=== PATIENT | male | born 1950 | race Caucasian/White ===

== ENCOUNTER 2023-03-15 07:45 | Outpatient (AMB) | payer OTHER, MEDICARE, SELFPAY ==
--- NOTE | 2023-03-15 08:00 | A.OFFVIS_ITS ---
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 It started about 3-4 years ago .2 years later he started noticing tremors in right hand as well. He denies difficulty with fine motor coordination. 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 He denies any memory issues. No word finding difficulties. No sleep talking.He used to snore when he was heavy .He denies depression, anxiety. He is motivated. SPeech- softer Swallowing- normal Mild drooling Handwriting-smaller Using utensils-normal Dressing-normal Showering-normal Turning in bed- normal Gait- normal No balance issues No falls He has constipation occasionally No urinary issues- has prostrate issues,? tumour No dizziness No hallucinations No h/o head injury exposed to kerosene [facility] Medical History Arthritis Atypical chest pain Colonic polyp Renal cell carcinoma Surgical History H/O arthroscopy History of hip replacement History of nephrectomy, right Family History Father Lung neoplasm Mother No problems noted. Social History Alcohol intake: former Patient Tobacco Use Status: Never used Tobacco Use of substances other than those prescribed or required for medical reasons: No Review of Systems Const Reports no additional complaints Eyes Reports no additional complaints ENT Reports no additional complaints Neuro Reports tremor(s) Physical Exam Vital Signs: Last Vital Signs Pulse 78 03/15/23 08:07 BP 118/72 03/15/23 08:07 Pulse Ox 97 03/15/23 08:07 Oxygen Delivery Method Room Air 03/15/23 08:07 BMI result Body Mass Index 27.6 Const General: cooperative, healthy appearing, comfortable and no acute distress Nutritional Appearance: average body habitus Orientation/consciousness: patient oriented x3 HEENT Head: Yes normal to inspection Neck Other: mild antecollis and restricted range of motion Neuro Other: Moderate decreased blink and facial expression mild lower lip tremors, tongue tremors , slow tongue movements Voice- hypophonia,dysprosody left UE moderate amplitude rest tremors Fine Finger movements - mildly decreased layne l>R Alternating hand movements - decreased layne Hand movements - decreased layne Foot taps- decreased layne Mild cog wheel rigidity gait - stooped, mild slowness and decreased arm swing L>R General: patient oriented x3 Cranial nerves: Yes CN's II-XII intact bilaterally, Yes Bilaterally intact EOM present, Yes Normal facial strength present and Yes Midline tongue present Cognition (Neuro): normal cognition Motor exam (neuro): 5/5 motor strength present throughout Deep tendon reflexes (DTR's): Right triceps reflex intensity grade: 2+, Left triceps reflex intensity grade: 2+, Rt Biceps (C5, C6): 2+, Left biceps reflex intensity grade: 2+, Right brachioradialis reflex intensity grade: 2+, Left brachioradialis reflex intensity grade: 2+, Right patellar reflex intensity grade: 2+ and Left patellar reflex intensity grade: 2+ Coordination: [id number] test normal Psych Appearance: grossly normal Assessment & Plan Assessment & Plan (1) Parkinson's disease: Code(s): G20 - Parkinson's disease Plan Discussed the diagnosis in detail suggested MRI brain and CATINA scan . Patient declined for now Discussed various treatment options - he wants to try sinemet 25/100 I will trial him on sinemet 25/100 1/2 to 1tab bid PT- for Parkinsons Info on APDA given. Orders: Orders PT Evaluation and Treatment Today G20 - Parkinson's disease Medications: New carbidopa-levodopa 25-100 mg (Sinemet) 1/2 to 1 tab bid orally 2 times a day; 60 tabs 2RF Coding Level of Care Code New Pt Level 4 (51676) Diagnoses Parkinson's disease G20
[2023-03-15 08:07] VITALS: BP 118/72; PULSE 78; O2SAT 97; BMI 27.6
== END 2023-03-15 08:45 | disposition home or self-care (01) ==
PROVIDERS: Visit Provider Psychiatry & Neurology Neurology
DX: G20 Parkinson's disease (principal)
CPT/HCPCS: 99204

== ENCOUNTER → 2023-03-15 07:45 | Outpatient (BNVA) | payer OTHER, MEDICARE, SELFPAY | PROVIDERS: Visit Provider Psychiatry & Neurology Neurology ==

== ENCOUNTER 2023-05-27 09:35 | Outpatient (AMB) | payer OTHER, MEDICARE, SELFPAY ==
--- NOTE | 2023-05-27 09:36 | MHC.OFFVIS ---
Intake Vital Signs 05/27/23 09:37 Height 5 ft 8 in Weight 185 lb BMI 28.1 BP 142/90 H Blood Pressure Location Lt brachial Position Sitting Respiration 16 Pulse 71 Pulse Source Pulse Oximeter Pulse Oximetry (%) 97 Oxygen Delivery Method Room Air Intake Visit Reasons: 2m follow up tremor/Parkinson-confirmed Intake Note: Pt presents to the office for 2 month follow up for tremors. He states his tremors are the same. I'm good . [employer] Internship Required: No Allergies Penicillins Allergy (Severe, Verified 05/27/23 09:36) rash Medication List - Last Reconciled 05/27/23 by Marisabel Cheng MD acetaminophen (Tylenol) 325 mg PO QID PRN carbidopa-levodopa 25-100 mg (Sinemet) 1 tab PO TID triamcinolone acetonide 0.5% 1 appl topical DAILY HPI HPI Comments History of Present Illness Details 73y/o male comes for follow up of parkinsons disease.He is on sinemet 25/100 1/2 tab bid. He [place] not noticed any difference. It started about 3-4 years ago .2 years later he started noticing tremors in right hand as well. He denies difficulty with fine motor coordination. 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 He denies any memory issues. No word finding difficulties. No sleep talking.He used to snore when he was heavy .He denies depression, anxiety. He is motivated. SPeech- softer Swallowing- normal Mild drooling Handwriting-smaller Using utensils-normal Dressing-normal Showering-normal Turning in bed- normal Gait- normal No balance issues No falls He has constipation occasionally No urinary issues- has prostrate issues,? tumour No dizziness No hallucinations No h/o head injury exposed to kerosene [facility] Medical History (Updated 05/27/23 @ 10:13 by Marisabel Cheng MD) Parkinson's disease without dyskinesia or fluctuating manifestations Arthritis Atypical chest pain Colonic polyp Renal cell carcinoma Surgical History H/O prostate biopsy History of nephrectomy, right History of hip replacement H/O arthroscopy Family History Father Lung neoplasm Mother No problems noted. Social History Alcohol intake: former Patient Tobacco Use Status: Never used Tobacco Physical Exam Vital Signs: Last Vital Signs Pulse 71 05/27/23 09:37 Resp 16 05/27/23 09:37 BP 142/90 H 05/27/23 09:37 Pulse Ox 97 05/27/23 09:37 Oxygen Delivery Method Room Air 05/27/23 09:37 BMI result Body Mass Index 28.1 Const General: cooperative, healthy appearing, comfortable and no acute distress Nutritional Appearance: average body habitus Orientation/consciousness: patient oriented x3 HEENT Head: Yes normal to inspection Neck Other: mild antecollis and restricted range of motion Neuro Other: UPDRS - 3 Speech 0-normal 1-Slight loss of expression,diction or volume 2.Monotone,slurred but understandable,moderately impaired 3.Marked impairment,difficult to understand 4.Unintelligible Facial expression 0-normal 1-Minimal hypomimia, poker face 2-Slight but definite abnormal diminution of facial expression 3-Moderate hypomimia,lips parted some of the time 4-Masked or fixed facies withs evere loss of facialexpression, lips parted more than 1/4 inch Rest Tremors( head, Upper, lower ) 0- absent 1-Slight and infrequent 2-Mild in amplitude and persistent 3-Moderate in amplitude and present most of the time 4-Marked amplitude and present most of the time Action and Postural tremors 0-none 1-Slight with action 2-Moderate with action 3-Moderate with posture and action 4-Marked , interferes with feeding Rigidity 0-Absent 1-Slight or detectable only when activated by mirror movements 2-Mild to Moderate 3-Marked, but full ROM achieved 4-Severe, range of motion achieved with difficulty Finger Taps 0-normal 1-Mild slowing an tejal reductionin amplitude 2-Moderately impaired. Early fatiguing and occasional arrests in movement 3-Severely impaired. Frequent hesitation in initiating movements or arrests in ongoing movement. 4-can barely perform the task Hand movements 0-normal 1-mild slowing and or reduction in amplitude 2-Moderately impaired.Definite and early fatiguing, may have occasional arrests in movement. 3-Severely impaired.Frequent hesitation in initiating or arrests in movement. 4-can barely perform the task Rapid Alternating Movements of Hands 0-normal 1-Mild slowing and or reduction in amplitude 2-Moderately impaired.Definite and early fatiguing. 2-Moderately impaired. Definite and early fatiguing. May have occasional arrests in movement. 3-severely impaired.Frequent hesitation in initiating movements or arrests in ongoing movement. 4-can barely perform the task Leg agility 0-normal 1-mild slowing and reduction in amplitude 2-moderately impaired.Definite and early fatiguing , may have occasional arrets in movement. 3-severely impaired.Frequent hesitation in initiating movements or arrests in ongoing movement. 4-can barely perform the task Arising from a chair 0-Normal 1-Slow or may need more than 1 attempt 2-Pushes self up from arms of seat 3-Tends to fall back and may have to try more than one time,but can get up without difficulty 4-Unable to stand without help Postural stability 0-normal 1-retropulsion but recovers unaided 2-absence of postural response,will fail if not caught by the examiner 3-very unstable,tends to lose balance spontaneously 4-unable to stand without assistance Body bradykinesia and hypokinesia 0-none 1-minimal slowness,giving movement a deliberate character,could be normal for some persons.Possible reduced amplitude 2-Mild degree of slowness and poverty of movement or some reduced amplitude 3-moderate slowness,poverty or small amplitude of movement 4-marked slowness, poverty or small amplitude of movement. General: patient oriented x3 Cranial nerves: Yes CN's II-XII intact bilaterally, Yes Bilaterally intact EOM present, Yes Normal facial strength present and Yes Midline tongue present Cognition (Neuro): normal cognition Motor exam (neuro): 5/5 motor strength present throughout Deep tendon reflexes (DTR's): Right triceps reflex intensity grade: 2+, Left triceps reflex intensity grade: 2+, Rt Biceps (C5, C6): 2+, Left biceps reflex intensity grade: 2+, Right brachioradialis reflex intensity grade: 2+, Left brachioradialis reflex intensity grade: 2+, Right patellar reflex intensity grade: 2+ and Left patellar reflex intensity grade: 2+ Coordination: [id number] test normal Psych Appearance: grossly normal Assessment & Plan Assessment & Plan (1) Parkinson's disease without dyskinesia or fluctuating manifestations: Code(s): G20.A1 - Parkinson's disease without dyskinesia, without mention of fluctuations Plan Discussed the diagnosis in detail. He has early parkinsons disease without any fluctuations or atypical features. No evidence of orthostatic hypotension today. Increase sinemet 25/100 1 tab tid . Sinemet or carbidopa/levodopa can help with his tremors and bradykinesia. some of the side effects include constipation, dizziness, nausea, hypotension, hallucinations etc. If he misses a dose of medications his tremors and his slowness of movements will worsen. PT- for Parkinsons Info on APDA given. 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
[2023-05-27 09:37] VITALS: BP 142/90; PULSE 71; RESP 16; O2SAT 97; BMI 28.1
== END 2023-05-27 10:09 | disposition home or self-care (01) ==
PROVIDERS: Visit Provider Psychiatry & Neurology Neurology
DX: G20.A1 Parkinson's disease without dyskinesia, without mention of fluctuations (principal)
CPT/HCPCS: 99214

== ENCOUNTER → 2023-05-27 09:35 | Outpatient (BNVA) | payer OTHER, MEDICARE, SELFPAY | PROVIDERS: Visit Provider Psychiatry & Neurology Neurology ==

== ENCOUNTER 2023-06-03 07:16 | Outpatient (REF) | payer OTHER, MEDICARE, SELFPAY ==
--- NOTE | ~2023-06-03 | MR_ITS ---
EXAMINATION: MR BRAIN WITHOUT CONTRAST CLINICAL INFORMATION: 73-year-old with Parkinson's disease. Self-reported intermittent left hand tremor. COMPARISON: None available. TECHNIQUE: Multiplanar multisequence MR imaging of the brain was done without IV contrast. FINDINGS: Brain Volume: Mild generalized diffuse parenchymal volume loss within the limitations of qualitative assessment. Structural: No malformations. Brain and Meninges: DWI sequence demonstrates no restricted diffusion to suggest acute or subacute cerebral ischemia. Gradient refocused imaging demonstrates no abnormal susceptibility-weighted signal loss to suggest hemorrhage, hemosiderin staining or abnormal mineralization. A single 3 mm left posterior frontal subcortical white matter T2 hyperintensity is noted which is nonspecific. Subtle patchy zones of FLAIR/T2 hyperintensity in the parieto-occipital white matter bilaterally also noted, likely reflecting chronic ischemic microangiopathy. Remainder of the brain is normal in signal intensity. No extra-axial fluid collections, space-occupying process or mass effect is identified. Ventricles and Subarachnoid Spaces: The ventricular system and subarachnoid spaces are within normal range; there is no hydrocephalus. Orbital Structures: The visualized orbital structures are grossly unremarkable within the limitations of the study. Vascular: Signal voids are noted in the visualized major intracranial arterial vessels. There is probably slow flow within the left transverse and sigmoid sinuses. If clinically warranted, this can be further assessed with contrast-enhanced MR venography. Osseous Structures, Sinuses/Mastoids, Extracranial Soft Tissues: Unremarkable MR/MR head/brain wo con IMPRESSION: 1. No acute intracranial process. No evidence for infarction, hemorrhage, extra-axial fluid collection, space-occupying process, mass effect or hydrocephalus. 2. 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 3. Probable slow flow within the left transverse and sigmoid sinuses. If clinically warranted, this can be further assessed with contrast-enhanced MR venography.
== END 2023-06-03 07:17 | disposition home or self-care (01) ==
LOC: HO.MRI 07:16
PROVIDERS: Visit Provider Psychiatry & Neurology Neurology
DX: G20.C Parkinsonism, unspecified (principal)
CPT/HCPCS: 70551

== ENCOUNTER 2023-08-22 07:53 | Outpatient (AMB) | payer OTHER, MEDICARE, SELFPAY ==
--- NOTE | 2023-08-22 08:00 | MHC.OFFVIS ---
Intake Vital Signs 08/22/23 08:01 Height 5 ft 8 in Weight 186 lb 8 oz BMI 28.4 BP 136/78 Blood Pressure Location Lt brachial Position Sitting Respiration 16 Pulse 68 Pulse Source Palpation Intake Visit Reasons: 3 mo f/u-Tremor - Conf through CW Intake Note: Pt presents for 3 month follow up for Parkinson's. Non Destructive Testing Inspector Required: No Allergies Penicillins Allergy (Severe, Verified 08/22/23 08:01) rash HPI HPI Comments History of Present Illness Details 73y/o male comes for follow up of parkinsons disease.He is on sinemet 25/100 1 tab tid. He feels tid is too much meds for him It started about 3-4 years ago .2 years later he started noticing tremors in right hand as well. He denies difficulty with fine motor coordination. 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 He denies any memory issues. No word finding difficulties. No sleep talking.He used to snore when he was heavy .He denies depression, anxiety. He is motivated. SPeech- softer Swallowing- normal Mild drooling Handwriting-smaller Using utensils-normal Dressing-normal Showering-normal Turning in bed- normal Gait- normal No balance issues No falls He has constipation occasionally No urinary issues- has prostrate issues,? tumour No dizziness No hallucinations No h/o head injury exposed to kerosene [facility] Medical History (Updated 05/27/23 @ 10:13 by Marisabel Cheng MD) Parkinson's disease without dyskinesia or fluctuating manifestations Arthritis Atypical chest pain Colonic polyp Renal cell carcinoma Surgical History H/O prostate biopsy History of nephrectomy, right History of hip replacement H/O arthroscopy Family History Father Lung neoplasm Mother No problems noted. Social History Alcohol intake: former Patient Tobacco Use Status: Never used Tobacco Physical Exam Vital Signs: Last Vital Signs Pulse 68 08/22/23 08:01 Resp 16 08/22/23 08:01 BP 136/78 08/22/23 08:01 BMI result Body Mass Index 28.4 Const General: cooperative, healthy appearing, comfortable and no acute distress Nutritional Appearance: average body habitus Orientation/consciousness: patient oriented x3 HEENT Head: Yes normal to inspection Neck Other: mild antecollis and restricted range of motion Neuro Other: UPDRS - 3 Speech 0-normal 1-Slight loss of expression,diction or volume 2.Monotone,slurred but understandable,moderately impaired 3.Marked impairment,difficult to understand 4.Unintelligible Facial expression 0-normal 1-Minimal hypomimia, poker face 2-Slight but definite abnormal diminution of facial expression 3-Moderate hypomimia,lips parted some of the time 4-Masked or fixed facies withs evere loss of facialexpression, lips parted more than 1/4 inch Rest Tremors( head, Upper, lower ) 0- absent 1-Slight and infrequent 2-Mild in amplitude and persistent 3-Moderate in amplitude and present most of the time 4-Marked amplitude and present most of the time Action and Postural tremors 0-none 1-Slight with action 2-Moderate with action 3-Moderate with posture and action 4-Marked , interferes with feeding Rigidity 0-Absent 1-Slight or detectable only when activated by mirror movements 2-Mild to Moderate 3-Marked, but full ROM achieved 4-Severe, range of motion achieved with difficulty Finger Taps 0-normal 1-Mild slowing an tejal reductionin amplitude 2-Moderately impaired. Early fatiguing and occasional arrests in movement 3-Severely impaired. Frequent hesitation in initiating movements or arrests in ongoing movement. 4-can barely perform the task Hand movements 0-normal 1-mild slowing and or reduction in amplitude 2-Moderately impaired.Definite and early fatiguing, may have occasional arrests in movement. 3-Severely impaired.Frequent hesitation in initiating or arrests in movement. 4-can barely perform the task Rapid Alternating Movements of Hands 0-normal 1-Mild slowing and or reduction in amplitude 2-Moderately impaired.Definite and early fatiguing. 2-Moderately impaired. Definite and early fatiguing. May have occasional arrests in movement. 3-severely impaired.Frequent hesitation in initiating movements or arrests in ongoing movement. 4-can barely perform the task Leg agility 0-normal 1-mild slowing and reduction in amplitude 2-moderately impaired.Definite and early fatiguing , may have occasional arrets in movement. 3-severely impaired.Frequent hesitation in initiating movements or arrests in ongoing movement. 4-can barely perform the task Arising from a chair 0-Normal 1-Slow or may need more than 1 attempt 2-Pushes self up from arms of seat 3-Tends to fall back and may have to try more than one time,but can get up without difficulty 4-Unable to stand without help Postural stability 0-normal 1-retropulsion but recovers unaided 2-absence of postural response,will fail if not caught by the examiner 3-very unstable,tends to lose balance spontaneously 4-unable to stand without assistance Body bradykinesia and hypokinesia 0-none 1-minimal slowness,giving movement a deliberate character,could be normal for some persons.Possible reduced amplitude 2-Mild degree of slowness and poverty of movement or some reduced amplitude 3-moderate slowness,poverty or small amplitude of movement 4-marked slowness, poverty or small amplitude of movement. General: patient oriented x3 Cranial nerves: Yes CN's II-XII intact bilaterally, Yes Bilaterally intact EOM present, Yes Normal facial strength present and Yes Midline tongue present Cognition (Neuro): normal cognition Motor exam (neuro): 5/5 motor strength present throughout Coordination: [id number] test normal Psych Appearance: grossly normal Assessment & Plan Assessment & Plan (1) Parkinson's disease without dyskinesia or fluctuating manifestations: Code(s): G20.A1 - Parkinson's disease without dyskinesia, without mention of fluctuations Plan Discussed about BIG and LOUD program and importance of consistent exercise No evidence of orthostatic hypotension today. continue sinemet 25/100 1 tab tid - decrease if he has side effects. Sinemet or carbidopa/levodopa can help with his tremors and bradykinesia. some of the side effects include constipation, dizziness, nausea, hypotension, hallucinations etc. If he misses a dose of medications his tremors and his slowness of movements will worsen. PT- for Parkinsons Info on APDA given. 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
[2023-08-22 08:01] VITALS: BP 136/78; PULSE 68; RESP 16; BMI 28.4
== END 2023-08-22 08:35 | disposition home or self-care (01) ==
PROVIDERS: PCP Internal Medicine; Visit Provider Psychiatry & Neurology Neurology
DX: G20.A1 Parkinson's disease without dyskinesia, without mention of fluctuations (principal)
CPT/HCPCS: 99214

== ENCOUNTER → 2023-08-22 07:53 | Outpatient (BNVA) | payer OTHER, MEDICARE, SELFPAY | PROVIDERS: PCP Internal Medicine; Visit Provider Psychiatry & Neurology Neurology ==

== ENCOUNTER 2023-09-14 16:23 | Outpatient (REF) | payer OTHER, MEDICARE, SELFPAY ==
--- NOTE | ~2023-09-14 | MR_ITS ---
EXAMINATION: MR VENOGRAM HEAD INDICATION: Intracranial and intraspinal phlebitis and thrombophlebitis COMPARISON: MRI brain on 06/03/2023 TECHNIQUE: Multiplanar multisequence MR venogram of the brain obtained without and following the administration of 10 mL of Gadavist without complication. 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 There is corresponding loss of flow-related signal within these sinuses however complete opacification is seen on postcontrast sequences. The inferior sagittal sinus is not seen and may be absent or hypoplastic. The superior sagittal sinus, internal cerebral veins, straight sinus, cavernous sinuses, and torcula demonstrate normal flow-related signal and complete contrast opacification. The right transverse sinus, right sigmoid sinus, and right exiting internal jugular vein also demonstrate normal flow-related signal and complete contrast opacification. No filling defect. No midline shift, hydrocephalus, or brain herniation. MR/MR venography head wo/w con IMPRESSION: No evidence of cerebral venous sinus thrombosis.
[2023-09-14] MEDS: gadobutroL 10 ML VIAL IVPUSH (17:21)
== END 2023-09-14 16:24 | disposition home or self-care (01) ==
LOC: HO.MRI 16:23
PROVIDERS: PCP Internal Medicine; Visit Provider Psychiatry & Neurology Neurology
DX: G08 Intracranial and intraspinal phlebitis and thrombophlebitis (principal)
CPT/HCPCS: 70546; A9585

== ENCOUNTER 2024-02-20 07:31 | Outpatient (AMB) | payer MEDICARE, OTHER, SELFPAY ==
--- NOTE | 2024-02-20 07:33 | A.OFFVIS_ITS ---
Vital Signs 02/20/24 07:34 Height 5 ft 8 in Weight 184 lb 4 oz BMI 28.0 BP 130/78 Blood Pressure Location Rt brachial Position Sitting Respiration 16 Pulse 87 Pulse Source Pulse Oximeter Pulse Oximetry (%) 98 Oxygen Delivery Method Room Air Intake Visit Reasons: 6 mo f/u - LVM w/add Intake Note: Pt presents for a 6 month follow up for Parkinson's. 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 He feels tid is too much meds for him- he was started on steroids for his back so he decreased the dose qd.When he was taking tid he did not notice any improvement. He has not been flying. It started about 3-4 years ago .2 years later he started noticing tremors in right hand as well. He denies difficulty with fine motor coordination. 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 He denies any memory issues. No word finding difficulties. No sleep talking.He used to snore when he was heavy .He denies depression, anxiety. He is motivated. SPeech- softer Swallowing- normal Mild drooling Handwriting-smaller Using utensils-normal Dressing-normal Showering-normal Turning in bed- normal Gait- normal No balance issues No falls He has constipation occasionally No urinary issues- has prostrate issues,? tumour No dizziness No hallucinations No h/o head injury exposed to kerosene [facility] Medical History Parkinson's disease without dyskinesia or fluctuating manifestations Arthritis Atypical chest pain Colonic polyp Renal cell carcinoma Surgical History H/O prostate biopsy History of nephrectomy, right History of hip replacement H/O arthroscopy Family History Father Lung neoplasm Mother No problems noted. Social History Alcohol intake: former Patient Tobacco Use Status: Never used Tobacco Physical Exam Vital Signs: Last Vital Signs Pulse 87 02/20/24 07:34 Resp 16 02/20/24 07:34 BP 130/78 02/20/24 07:34 Pulse Ox 98 02/20/24 07:34 Oxygen Delivery Method Room Air 02/20/24 07:34 BMI result Body Mass Index 28.0 Const General: cooperative, healthy appearing, comfortable and no acute distress Nutritional Appearance: average body habitus Orientation/consciousness: patient oriented x3 HEENT Head: Yes normal to inspection Neck Other: mild antecollis and restricted range of motion Neuro Other: UPDRS - 3 Speech 0-normal 1-Slight loss of expression,diction or volume 2.Monotone,slurred but understandable,moderately impaired 3.Marked impairment,difficult to understand 4.Unintelligible Facial expression 0-normal 1-Minimal hypomimia, poker face 2-Slight but definite abnormal diminution of facial expression 3-Moderate hypomimia,lips parted some of the time 4-Masked or fixed facies withs evere loss of facialexpression, lips parted more than 1/4 inch Rest Tremors( head, Upper, lower ) 0- absent 1-Slight and infrequent 2-Mild in amplitude and persistent 3-Moderate in amplitude and present most of the time 4-Marked amplitude and present most of the time Action and Postural tremors 0-none 1-Slight with action 2-Moderate with action 3-Moderate with posture and action 4-Marked , interferes with feeding Rigidity 0-Absent 1-Slight or detectable only when activated by mirror movements 2-Mild to Moderate 3-Marked, but full ROM achieved 4-Severe, range of motion achieved with difficulty Finger Taps 0-normal 1-Mild slowing an tejal reductionin amplitude 2-Moderately impaired. Early fatiguing and occasional arrests in movement 3-Severely impaired. Frequent hesitation in initiating movements or arrests in ongoing movement. 4-can barely perform the task Hand movements 0-normal 1-mild slowing and or reduction in amplitude 2-Moderately impaired.Definite and early fatiguing, may have occasional arrests in movement. 3-Severely impaired.Frequent hesitation in initiating or arrests in movement. 4-can barely perform the task Rapid Alternating Movements of Hands 0-normal 1-Mild slowing and or reduction in amplitude 2-Moderately impaired.Definite and early fatiguing. 2-Moderately impaired. Definite and early fatiguing. May have occasional arrests in movement. 3-severely impaired.Frequent hesitation in initiating movements or arrests in ongoing movement. 4-can barely perform the task Leg agility 0-normal 1-mild slowing and reduction in amplitude 2-moderately impaired.Definite and early fatiguing , may have occasional arrets in movement. 3-severely impaired.Frequent hesitation in initiating movements or arrests in ongoing movement. 4-can barely perform the task Arising from a chair 0-Normal 1-Slow or may need more than 1 attempt 2-Pushes self up from arms of seat 3-Tends to fall back and may have to try more than one time,but can get up without difficulty 4-Unable to stand without help Postural stability 0-normal 1-retropulsion but recovers unaided 2-absence of postural response,will fail if not caught by the examiner 3-very unstable,tends to lose balance spontaneously 4-unable to stand without assistance Body bradykinesia and hypokinesia 0-none 1-minimal slowness,giving movement a deliberate character,could be normal for some persons.Possible reduced amplitude 2-Mild degree of slowness and poverty of movement or some reduced amplitude 3-moderate slowness,poverty or small amplitude of movement 4-marked slowness, poverty or small amplitude of movement. General: patient oriented x3 Cranial nerves: Yes CN's II-XII intact bilaterally, Yes Bilaterally intact EOM present, Yes Normal facial strength present and Yes Midline tongue present Cognition (Neuro): normal cognition Motor exam (neuro): 5/5 motor strength present throughout Coordination: [id number] test normal Psych Appearance: grossly normal Assessment & Plan Assessment & Plan (1) Parkinson's disease without dyskinesia or fluctuating manifestations: Code(s): G20.A1 - Parkinson's disease without dyskinesia, without mention of fluctuations Category: Medical Plan Discussed about [employer] program and importance of consistent exercise No evidence of orthostatic hypotension today. Increase sinemet 25/100 1 tab tid - decrease if he has side effects. Sinemet or carbidopa/levodopa can help with his tremors and bradykinesia. some of the side effects include constipation, dizziness, nausea, hypotension, hallucinations etc. PT- for Parkinsons Info on APDA given. Coding Level of Care Code Est Pt Level 4 (81259) Complex EM visit Add On G2211 Diagnoses Parkinson's disease without dyskinesia or fluctuating manifestations G20.A1
[2024-02-20 07:34] VITALS: BP 130/78; PULSE 87; RESP 16; O2SAT 98; BMI 28.0
== END 2024-02-20 08:08 | disposition home or self-care (01) ==
PROVIDERS: PCP Internal Medicine; Visit Provider Psychiatry & Neurology Neurology
DX: G20.A1 Parkinson's disease without dyskinesia, without mention of fluctuations (principal)
CPT/HCPCS: 99214; G2211

== ENCOUNTER → 2024-02-20 07:31 | Outpatient (BNVA) | payer MEDICARE, OTHER, SELFPAY | PROVIDERS: PCP Internal Medicine; Visit Provider Psychiatry & Neurology Neurology | DX: G20.A1 Parkinson's disease without dyskinesia, without mention of fluctuations (principal) | CPT/HCPCS: 99212 ==

== ENCOUNTER 2024-09-19 08:29 | Outpatient (AMB) | payer MEDICARE, OTHER, SELFPAY ==
--- NOTE | 2024-09-19 08:30 | A.OFFVIS_ITS ---
Vital Signs 09/19/24 08:31 Height 5 ft 8 in Weight 188 lb BMI 28.6 BP 130/84 Blood Pressure Location Rt brachial Position Sitting Pulse 73 Pulse Source Pulse Oximeter Pulse Oximetry (%) 99 Intake Visit Reasons: 6 mnts f/u appt Intake Note: patient following up on parkinsons disease. PT consult note scanned ([facility]) 05/03/24 Allergies Penicillins Allergy (Severe, Verified 09/19/24 08:33) rash HPI Comments Details: 73y/o R. handed male comes for follow up of Parkinsons disease. He stopped sinemet 25/100 1 tab qd, he was taking it tid and did not notice any improvement. He fell 3 weeks ago on his l. side, no injuries to the hip or any joints. L. Knee pain d/t arthritis, will get hylauronic injections at [facility], currently using Voltaran topically. Tremors started about 3-4 years ago. 2 years later he started noticing tremors in right hand, lips, and voice. He denies difficulty with fine motor coordination. 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 He denies any memory issues. No word finding difficulties. No sleep talking.He snores loudly and feels fatigued .He denies depression, anxiety. He is motivated. Speech- softer Swallowing- normal Mild drooling Handwriting-smaller - improves with PT Using utensils-normal Dressing-normal- had therapy and improved fine motor, with buttons. Showering-normal Turning in bed- some diffiiculty Gait- normal with stooped posture and shuffling - favors L. side No balance issues uses canes No falls He has constipation occasionally- uses fiber prn No urinary issues- has prostrate issues,? tumor- low grade nubia score 6 - 2% chance had genetic testing, with score 9-9.5, monitor with surveillance. 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 [facility] Medical History Parkinson's disease without dyskinesia or fluctuating manifestations Arthritis Atypical chest pain Colonic polyp Renal cell carcinoma Surgical History H/O prostate biopsy History of nephrectomy, right History of hip replacement H/O arthroscopy Family History Father Lung neoplasm Mother No problems noted. Social History Alcohol intake: former Patient Tobacco Use Status: Never used Tobacco Review of Systems Const All systems reviewed & are unremarkable except as noted in HPI and below Physical Exam Vital Signs: Last Vital Signs Pulse 73 09/19/24 08:31 BP 130/84 09/19/24 08:31 Pulse Ox 99 09/19/24 08:31 BMI result Body Mass Index 28.6 Const General: healthy appearing, comfortable and no acute distress Nutritional Appearance: average body habitus Orientation/consciousness: patient oriented x3 HEENT Head: Yes normal to inspection Neck Other: mild antecollis and restricted range of motion Neuro Other: UPDRS - 3 Speech 0-normal 1-Slight loss of expression,diction or volume 2.Monotone,slurred but understandable,moderately impaired 3.Marked impairment,difficult to understand 4.Unintelligible Facial expression 0-normal 1-Minimal hypomimia, poker face 2-Slight but definite abnormal diminution of facial expression 3-Moderate hypomimia,lips parted some of the time 4-Masked or fixed facies withs evere loss of facialexpression, lips parted more than 1/4 inch Rest Tremors( head, Upper, lower ) 0- absent 1-Slight and infrequent 2-Mild in amplitude and persistent 3-Moderate in amplitude and present most of the time 4-Marked amplitude and present most of the time Action and Postural tremors 0-none 1-Slight with action 2-Moderate with action 3-Moderate with posture and action 4-Marked , interferes with feeding Rigidity 0-Absent 1-Slight or detectable only when activated by mirror movements 2-Mild to Moderate 3-Marked, but full ROM achieved 4-Severe, range of motion achieved with difficulty Finger Taps 0-normal 1-Mild slowing an tejal reductionin amplitude 2-Moderately impaired. Early fatiguing and occasional arrests in movement 3-Severely impaired. Frequent hesitation in initiating movements or arrests in ongoing movement. 4-can barely perform the task Hand movements 0-normal 1-mild slowing and or reduction in amplitude 2-Moderately impaired.Definite and early fatiguing, may have occasional arrests in movement. 3-Severely impaired.Frequent hesitation in initiating or arrests in movement. 4-can barely perform the task Rapid Alternating Movements of Hands 0-normal 1-Mild slowing and or reduction in amplitude 2-Moderately impaired.Definite and early fatiguing. 2-Moderately impaired. Definite and early fatiguing. May have occasional arrests in movement. 3-severely impaired.Frequent hesitation in initiating movements or arrests in ongoing movement. 4-can barely perform the task Leg agility 0-normal 1-mild slowing and reduction in amplitude 2-moderately impaired.Definite and early fatiguing , may have occasional arrets in movement. 3-severely impaired.Frequent hesitation in initiating movements or arrests in ongoing movement. 4-can barely perform the task Arising from a chair 0-Normal 1-Slow or may need more than 1 attempt 2-Pushes self up from arms of seat 3-Tends to fall back and may have to try more than one time,but can get up without difficulty 4-Unable to stand without help Postural stability 0-normal 1-retropulsion but recovers unaided 2-absence of postural response,will fail if not caught by the examiner 3-very unstable,tends to lose balance spontaneously 4-unable to stand without assistance Body bradykinesia and hypokinesia 0-none 1-minimal slowness,giving movement a deliberate character,could be normal for some persons.Possible reduced amplitude 2-Mild degree of slowness and poverty of movement or some reduced amplitude 3-moderate slowness,poverty or small amplitude of movement 4-marked slowness, poverty or small amplitude of movement. General: patient oriented x3 Cranial nerves: Yes CN's II-XII intact bilaterally, Yes Bilaterally intact EOM present, Yes Normal facial strength present and Yes Midline tongue present Cognition (Neuro): normal cognition Motor exam (neuro): 5/5 motor strength present throughout Coordination: [id number] test normal Psych Appearance: grossly normal Results Reviewed Results Reviewed: MRI Assessment & Plan Assessment & Plan (1) Parkinson's disease without dyskinesia or fluctuating manifestations: Code(s): G20.A1 - Parkinson's disease without dyskinesia, without mention of fluctuations Category: Medical Plan PT Balance and Gait Instability HST Snoring Orders: Orders RT home sleep study 09/19/24 G47.19 - Other hypersomnia PT Evaluation and Treatment 09/19/24 G20.A1 - Parkinson's disease without dyskinesia, without mention of fluctuations Medications: Discontinued carbidopa-levodopa 25-100 mg (Sinemet) Discontinued Reason: Patient no longer taking 1 tab PO TID 90 tabs 6RF Coding Level of Care Code Est Pt Level 4 (15440) Complex EM visit Add On G2211 Diagnoses Parkinson's disease without dyskinesia or fluctuating manifestations G20.A1 Time Spent (min) 30
[2024-09-19 08:31] VITALS: BP 130/84; PULSE 73; O2SAT 99; BMI 28.6
--- OUTSIDE RECORDS SUMMARY | 2024-09-19 08:32 | XMS_ITS | Clinical Summary ---
Author Organization [facility] Address [address] [address] Phone Care Team Providers Care Visual Training Aide Name Role Phone GavinoRaiza fontaine ANALYST [facility] Primary Care Provider + Allergies Active Allergy Reactions Criticality Noted Date Comments Penicillins Other (see comments) 10/15/2021 Medications fluorouracil (EFUDEX) 5 % cream 2 Active Multiple Vitamin (Multivitamin Adult) tablet Take 1 tablet by mouth 1 (one) time each day 3 Active ferrous sulfate 325 (65 Fe) MG tablet Take 325 mg by mouth 1 (one) time each day with breakfast 2 Active cyanocobalamin (VITAMIN B-12) 1000 MCG tablet Take 1,000 mcg by mouth 1 (one) time each day 3 Active acetaminophen (Acetaminophen 8 Hour) 650 MG 8 hr tablet Take 650 mg by mouth every 8 (eight) hours if needed 2 Active clindamycin (CLEOCIN) 300 MG capsule Take 600 mg by mouth 3 Active propranolol (INDERAL) 20 MG tablet Take 20 mg by mouth 1 (one) time each day if needed 4 Active carbidopa-levod opa (SINEMET) 25-100 MG per tablet Take 1 tablet by mouth 1 (one) time each day if needed 4 08/22/19 Discontinu ed(Med List Maintenanc e) Active Problems Problem Noted Date Diagnosed Date Malignant neoplasm of prostate 12/23/2022 Total nephrectomy 09/21/2021 Renal cell carcinoma 09/21/2021 Cyst of kidney 09/21/2021 Stage 3a chronic kidney disease 09/21/2021 Encounters Date Type Department Care Team Description 08/24/2024 Orders Only [facility] [address] [place] [id number] Javad Ahn MD Stage 3a chronic kidney disease (HCC); Total nephrectomy; Cyst of kidney 08/22/2024 8:00 AM EST Office Visit [facility] [address] [facility] [address] [place] [phone] Javad Ahn MD Stage 3a chronic kidney disease (HCC) (Primary Dx); Total nephrectomy; Renal cell carcinoma <Unspecified side> (HCC); Malignant neoplasm of prostate (HCC); Cyst of kidney from Last 3 Months Immunizations Name Administration Dates Next Due Influenza Split High Dose Preservative Free IM 1 Family History Medical History Relation Comments Cancer Father lung cancer Kidney disease Father right kidney rem jose r 55yo cancer Heart disease Mother A-Fib Relation Status Comments Father Mother Social History Tobacco Use Types Packs/Day Years Used Date Smoking Tobacco: Never Smokeless Tobacco: Never Alcohol Use Standard Drinks/Week Comments No 0 (1 standard drink = 0.6 oz pur e alcohol) Sex and Gender Information Value Date Recorded Sex Assigned at Not on file Legal Sex Male 4:56 PM EST Gender Identity Male 01/18/2023 11:11 AM EDT Sexual Orientation Straight 01/18/2023 11 :11 AM EDT Last Filed Vital Signs Vital Sign Reading Time Taken Comments Blood Pressure 149/84 08/22/2024 8:22 AM EST Pulse 72 08/22/2024 8:22 AM EST Temperature - - Respiratory Rate - - Oxygen Saturation 97% 08/22/2024 8:22 AM EST Inhaled Oxygen Concentration - - Weight 86.2 kg (190 lb) 08/22/2024 8:22 AM EST Height 171.5 cm (5' 7.5 ) 08/22/2024 8:22 AM EST Body Mass Index 29.32 08/22/2024 8:22 AM EST Plan of Treatment Upcoming Encounters Date Type Department Care Team (Late st Contact Info) Description 08/22/2025 8:00 AM EST Office Visit [facility] [address] [facility] [address] [place] [address] Javad Ahn MD [address] [facility] [address] [place] [address] Health Maintenance Due Date Last Done Comments Pneumococcal Vaccine: 65+ Ye ars (1 of 2 - PCV) 02/24/1956 Colorectal Cancer Screening: Annual FOBT 1999 Colorectal Cancer Screening: Colonoscopy 1999 Colorectal Cancer Screening: Sigmoidoscopy 1999 Influenza Vaccine (#1) 2024 05/01/2019 Hepatitis B Vaccine Aged Out No longe r eligible based on patient's age to complete this topic Procedures Procedure Name Priority Date/Time Associated Diagnosis Comments PTH, INTACT Routine 08/16/2024 3:41 PM EST MAGNESIUM Routine 08/16/2024 3:41 PM EST PHOSPHATE ( PHOSPHORUS) Routine 08/16/2024 3:41 PM EST URIC ACID Routine 08/16/2024 3:41 PM EST VITAMIN D 25 HYDROXY Routine 08/16/2024 3:41 PM EST PROTEIN / CREATININE RATIO, URINE Routine 08/16/2024 3:41 PM EST URINALYSIS WITH MICROSCOPIC Routine 08/16/2024 3:41 PM EST COMPREHENSIVE METABOLIC PANEL Routine 08/16/2024 3:41 PM EST CBC AND DIFFERENTIAL Routine 08/16/2024 3:41 PM EST MICROSCOPIC EXAMINATION - DO NOT USE Routine 08/16/2024 3:41 PM EST from Last 3 Months Results * Microscopic Examination (08/16/2024 3:41 PM EST) WBC, Urine None seen 0 - 5 /hpf [facility] RBC, Urine None seen 0 - 2 /hpf [facility] Squamous Epithelial, Urine None seen 0 - 10 /hpf [facility] Casts None seen None seen /lpf [facility] Bacteria, Urine None seen None seen/Few [facility] 08/16/2024 3:41 PM EST 08/16/2024 us Javad Ahn MD LAB MICROBIOLOGY - GENERAL OR DERABLES Final Result Performing Organization Address City/[facility]/ZIP Co de Phone Number [facility] [address] [place] [address] * Protein, Total, Random Urine w/Creatinine (Protein/Creat Ratio) (08/16/2024 3:41 PM EST) Pathologist [facility] Creatinine, Ur 111.5 Not Estab. mg/dL [facility] Protein, Ur 8.7 Not Estab. mg/dL [facility] Urine Protein/Creatin ine Ratio 78 0 - 200 mg/g creat [facility] 08/16/2024 3:41 PM EST 08/16/2024 us Javad Ahn MD LAB URINE ORDERABLES Final Re sult [facility] [address] [place] [address] * Vitamin D 25 Hydroxy (08/16/2024 3:41 PM EST) Pathologist [facility] Vitamin D, 25-OH, Total 38.5 30.0 - 100.0 ng/mL [facility] [place] Comment: Vitamin D deficiency has been defined by the Harrison of Medicine and an Endocrine Society practice guideline as a level of serum 25-OH vitamin D less than 20 ng/mL (1,2). The Endocrine Society went on to further define vitamin D insufficiency as a level between 21 and 29 ng/mL (2). 1. IOM (Harrison of Medicine). 2010. Dietary reference ?? intakes for calcium and D. [place]: The ?? National AcademSpreadtrum Communications Press. 2. Lavell MF, Derrick JUAREZ, Blanca BARBOZA, et al. ?? Evaluation, treatment, and prevention of vitamin D ?? deficiency: an Endocrine Society clinical practice ?? guideline. JCEM. 2010; 96(7):1911-30. 08/16/2024 3:41 PM EST 08/16/2024 us Javad Ahn MD LAB BLOOD ORDERABLES Final Re sult [facility] [address] [place] [address] * Urinalysis with microscopic (08/16/2024 3:41 PM EST) Specific [place], Urine 1.020 1.005 - 1.030 [facility] pH Urine 6.5 5.0 - 7.5 [facility] Color, Urine Yellow Yellow [facility] Appearance Urine Clear Clear [facility] [place] WBC Esterase Urine Negative Negative [facility] Protein, Ur Negative Negative/Tra ce [facility] [phone] Glucose, Ur Negative Negative [facility] Ketones, Urine Negative Negative [facility] [place] Blood Urine Negative Negative [facility] [phone] Bilirubin Urine Negative Negative [facility] [place] [phone] Urobilinogen Urine 0.2 0.2 - 1.0 mg/dL [facility] Nitrite, Urine Negative Negative [facility] [place] Microscopic Examination Comment [facility] Comment:Microscopic follows if indicated. Other Microsc. Observations See below: [facility] Comment:Microscopic was zaira cated and was performed. 08/16/2024 3:41 PM EST 08/16/2024 us Javad Ahn MD LAB URINE ORDERABLES Final Re sult [facility] [address] [place] [address] * (ABNORMAL) CBC and Differential (08/16/2024 3:41 PM EST) WBC 4.4 3.4 - 10.8 x10E3/uL [facility] RBC 6.79(H) 4.14 - 5.80 x10E6/uL [facility] Hemoglobin 14.6 13.0 - 17.7 g/dL [facility] Hematocrit 47.9 37.5 - 51.0 % [facility] MCV 71(L) 79 - 97 fL [facility] MCH 21.5(L) 26.6 - 33.0 pg [facility] MCHC 30.5(L) 31.5 - 35.7 g/dL [facility] RDW 17.6(H) 11.6 - 15.4 % [facility] Platelets 252 150 - 450 x10E3/uL [facility] Neutrophils Relative 68 Not Estab. % [facility] Lymphocytes Relative 19 Not Estab. % [facility] Monocytes 9 Not Estab. % [facility] Eosinophils Relative 2 Not Estab. % [facility] Basophils Relative 2 Not Estab. % [facility] Neutrophils Absolute 3.0 1.4 - 7.0 x10E3/uL [facility] Lymphocytes Absolute 0.8 0.7 - 3.1 x10E3/uL [facility] Monocytes Absolute 0.4 0.1 - 0.9 x10E3/uL [facility] Eosinophils Absolute 0.1 0.0 - 0.4 x10E3/uL [facility] Basophils Absolute 0.1 0.0 - 0.2 x10E3/uL [facility] Immature Granulocytes 0 Not Estab. % [facility] Immature Grans (Absolute) 0.0 0.0 - 0.1 x10E3/uL [facility] 08/16/2024 3:41 PM EST 08/16/2024 Javad Ahn MD LAB BLOOD ORDERABLES Final Re sult [facility] [address] [place] [phone] * Uric Acid (08/16/2024 3:41 PM EST) Uric Acid 5.6 3.8 - 8.4 mg/dL [facility] Comment:Therapeutic target f or gout patients: <6.0 08/16/2024 3:41 PM EST 08/16/2024 us Javad Ahn MD LAB BLOOD ORDERABLES Final Re sult [facility] [address] [place] [address] * Phosphorus (08/16/2024 3:41 PM EST) Phosphorus 4.0 2.8 - 4.1 mg/dL [facility] 08/16/2024 3:41 PM EST 08/16/2024 Javad Ahn MD LAB BLOOD ORDERABLES Final Re sult Performing Organization Address [facility]/ZIP Co de Phone Number [facility] [address] [place] [address] * PTH, Intact (08/16/2024 3:41 PM EST) Pathologist [facility] PTH 44 15 - 65 pg/mL [facility] 08/16/2024 3:41 PM EST 08/16/2024 us Javad Ahn MD LAB BLOOD ORDERABLES Final Re sult Performing Organization Address [facility] Co de Phone Number [facility] [address] [place] [address] * Magnesium (08/16/2024 3:41 PM EST) Magnesium 2.0 1.6 - 2.3 mg/dL [facility] 08/16/2024 3:41 PM EST 08/16/2024 us Javad Ahn MD LAB BLOOD ORDERABLES Final Re sult Performing Organization Address [facility] Co de Phone Number [facility] [address] [place] [address] * (ABNORMAL) Comprehensive Metabolic Panel (08/16/2024 3:41 PM EST) Glucose 106(H) 70 - 99 mg/dL [facility] BUN 15 8 - 27 mg/dL [facility] Creatinine 1.24 0.76 - 1.27 mg/dL [facility] eGFR CKD-EPI CR 2020 61 >59 mL/min/1.7 3 [facility] BUN/Creatinine Ratio 12 10 - 24 [facility] Sodium 140 134 - 144 mmol/L [facility] Potassium 4.2 3.5 - 5.2 mmol/L [facility] Chloride 100 96 - 106 mmol/L [facility] Bicarbonate (CO2) 25 20 - 29 mmol/L [facility] Calcium 9.8 8.6 - 10.2 mg/dL [facility] Total Protein 7.0 6.0 - 8.5 g/dL [facility] Albumin 4.5 3.8 - 4.8 g/dL [facility] Globulin 2.5 1.5 - 4.5 g/dL [facility] Total Bilirubin 1.1 0.0 - 1.2 mg/dL [facility] Alkaline Phosphatase 63 44 - 121 IU/L [facility] AST (SGOT) 26 0 - 40 IU/L [facility] ALT (SGPT) 20 0 - 44 IU/L [facility] 08/16/2024 3:41 PM EST 08/16/2024 us Javad Ahn MD LAB BLOOD ORDERABLES Final Re sult [facility] [address] [place] [phone] from Last 3 Months Insurance MEDICARE [facility] MEDICARE [facility] Care Teams Visual Training Aide Relationship Specialty Start Date End Date Raiza Mancia NP-C [address], [address] [place] [address] PCP - General Nurse Practitioner 08/22/24
--- OUTSIDE RECORDS SUMMARY | 2024-09-19 08:32 | XMS_ITS | Data Portability ---
Author Organization VERA Barron Mar Orevita [facility], [facility] Address [address] [place] [address] Care Team Providers Care Broke Worker Name Role Phone ALEX HA Primary Care Provider [phone] Assessment No assessment recorded. Plan of Treatment Reminders Order Date Submit Date Provider Last Modified By Organization Details Last Modified Time Details Appointments INJECTIO N ONLY 15 2024 08:45A Jaime Estrada PA-C Not available Not available Not available RECHECK 15 2024 02:45P Jaime WEAVER PA-C Not available Not available Not available Lab None recorded . Referral None recorded . Procedures None recorded . Surgeries None recorded . Imaging XR, hip + pelvis, unilater al, 2 or 3 view - hip pain rm 215 2024 025 [facility], [address], [place], [address], 09/04/2024 10:30:26 XR, hip + pelvis, unilater al, 2 or 3 view - rm [address] morgan 2023 024 rmessenger [facility], [address], [address], [place], [address], 08/16/2024 15:08:47 XR, lumbar spine, 2 view 2023 024 [facility], [address], [address], [place], [address], 05/07/2024 10:46:33 Medication Orders Tylenol 8 Hour 650 mg tablet,e xtended release 2024 025 MISSY [id number], [address] [place] [address] 1, [place], [place], [id number], 09/04/2024 10:16:02 Patient TargetsNo targets recorded. Patient InstructionsNo instructions recorded. Reason for Referral None Reported. Results Created Date Observation Date Name Description Value Unit Range Abnormal Flag Note LastModifiedBy Organization Detail LastModifiedTime 08/16/1908/17/2024 CBC WITH DIFFE RENTI AL/PL ATELE T WBC 4.5 x10e3 /uL 3.4-10 .8 normal Not Available [facility] ([facility]) [address] [place], [address], 08/17/2024 08:08:39 08/16/1908/17/2024 CBC WITH DIFFE RENTI AL/PL ATELE T RBC 6.75 x10e6 /uL 4.14-5 .80 above high normal Not Available [facility] ([facility]) [address] [place], [address], 08/17/2024 08:08:39 08/16/19 25 08/17/2024 CBC WITH DIFFE RENTI AL/PL ATELE T hemoglobin 14.6 g/dL 13.0-1 7.7 normal Not Available [facility] ([facility]) [address] [place], [address], 08/17/2024 08:08:39 08/16/19 25 08/17/2024 CBC WITH DIFFE RENTI AL/PL ATELE T hematocrit 47.8 % 37.5-5 1.0 normal Not Available [facility] ([facility]) [address] [place], [address], 08/17/2024 08:08:39 08/16/19 25 08/17/2024 CBC WITH DIFFE RENTI AL/PL ATELE T MCV 71 fL 79-97 below low normal Not Available [facility] ([facility]) [address] [place], [address], 08/17/2024 08:08:39 08/16/19 25 08/17/2024 CBC WITH DIFFE RENTI AL/PL ATELE T MCH 21.6 pg 26.6-3 3.0 below low normal Not Available [facility] ([facility]) [address] [place], [address], 08/17/2024 08:08:39 08/16/19 25 08/17/2024 CBC WITH DIFFE RENTI AL/PL ATELE T MCHC 30.5 g/dL 31.5-3 5.7 below low normal Not Available [facility] ([facility]) [address] [place], [address], 08/17/2024 08:08:39 08/16/19 25 08/17/2024 CBC WITH DIFFE RENTI AL/PL ATELE T RDW 17.0 % 11.6-1 5.4 above high normal Not Available [facility] ([facility]) [address] [place], [address], 08/17/2024 08:08:39 08/16/19 25 08/17/2024 CBC WITH DIFFE RENTI AL/PL ATELE T platelets 272 x10e3 /uL 150-45 0 normal Not Available [facility] ([facility]) [address] [place], [address], 08/17/2024 08:08:39 08/16/19 25 08/17/2024 CBC WITH DIFFE RENTI AL/PL ATELE T neutrophils 67 % not estab. normal Not Available [facility] ([facility]) [address] [place], [address], 08/17/2024 08:08:39 08/16/19 25 08/17/2024 CBC WITH DIFFE RENTI AL/PL ATELE T lymphs 20 % not estab. normal Not Available [facility] ([facility]) [address] [facility], [place], [address], 08/17/2024 08:08:39 08/16/19 25 08/17/2024 CBC WITH DIFFE RENTI AL/PL ATELE T monocytes 9 % not estab. normal Not Available [facility] ([facility]) [address] [facility], [place], [address], 08/17/2024 08:08:39 08/16/19 25 08/17/2024 CBC WITH DIFFE RENTI AL/PL ATELE T eos 2 % not estab. normal Not Available [facility] ([facility]) [address] [facility], [place], [address], 08/17/2024 08:08:39 08/16/19 25 08/17/2024 CBC WITH DIFFE RENTI AL/PL ATELE T basos 2 % not estab. normal Not Available [facility] ([facility]) [address] [place], [address], 08/17/2024 08:08:39 08/16/19 25 08/17/2024 CBC WITH DIFFE RENTI AL/PL ATELE T immature cells DRUG SAFETY DATA MANAGEMENT SPECIALIST Not Available [facility] ([facility]) [address] [place], [address], 08/17/2024 08:08:39 08/16/19 25 08/17/2024 CBC WITH DIFFE RENTI AL/PL ATELE T neutrophils (absolute) 3.1 x10e3 /uL 1.4-7. 0 normal Not Available [facility] ([facility]) [address] [place], [address], 08/17/2024 08:08:39 08/16/19 25 08/17/2024 CBC WITH DIFFE RENTI AL/PL ATELE T lymphs (absolute) 0.9 x10e3 /uL 0.7-3. 1 normal Not Available [facility] ([facility]) [address] [facility], [place], [address], 08/17/2024 08:08:39 08/16/19 25 08/17/2024 CBC WITH DIFFE RENTI AL/PL ATELE T monocytes(ab solute) 0.4 x10e3 /uL 0.1-0. 9 normal Not Available [facility] ([facility]) [address] [facility], [place], [address], 08/17/2024 08:08:39 08/16/19 25 08/17/2024 CBC WITH DIFFE RENTI AL/PL ATELE T eos (absolute) 0.1 x10e3 /uL 0.0-0. 4 normal Not Available [facility] ([facility]) [address] [facility], [place], [address], 08/17/2024 08:08:39 08/16/19 25 08/17/2024 CBC WITH DIFFE RENTI AL/PL ATELE T baso (absolute) 0.1 x10e3 /uL 0.0-0. 2 normal Not Available [facility] ([facility]) [address] [facility], [place], [address], 08/17/2024 08:08:39 08/16/19 25 08/17/2024 CBC WITH DIFFE RENTI AL/PL ATELE T immature granulocytes 0 % not estab. Not Available [facility] ([facility]) [address] [place], [address], 08/17/2024 08:08:39 08/16/19 25 08/17/2024 CBC WITH DIFFE RENTI AL/PL ATELE T immature grans (abs) 0.0 x10e3 /uL 0.0-0. 1 Not Available [facility] ([facility]) [address] [facility], [place], [address], 08/17/2024 08:08:39 08/16/19 25 08/17/2024 CBC WITH DIFFE RENTI AL/PL ATELE T NRBC DRUG SAFETY DATA MANAGEMENT SPECIALIST Not Available [facility] ([facility]) [address] [facility], [place], [address], 08/17/2024 08:08:39 08/16/19 25 08/17/2024 CBC WITH DIFFE RENTI AL/PL ATELE T hematology comments: DRUG SAFETY DATA MANAGEMENT SPECIALIST Not Available [facility] ([facility]) [address] [facility], [place], [address], 08/17/2024 08:08:39 08/16/19 25 08/17/2024 SEDIM ENTAT ION RATE- WESTE RGREN sedimentatio n rate-westerg anselmo 3 mm/HR 0-30 normal Not Available [facility] ([facility]) [address] [facility], [place], [address], 08/17/2024 08:08:40 08/16/19 25 08/17/2024 C-STEPHANE CTIVE PROTE IN, QUANT C-reactive protein, quant 1 mg/L 0-10 normal Not Available [facility] ([facility]) [address] [facility], [place], [address], 08/17/2024 08:08:41 03/26/20 24 03/26/2024 XR, knee, 4 or more view [email or web address]:/ [email or web address] ?Encry pted=s hAaTro YD8dLq bEUv6g %2BXZw aYqtaq 0bqfl% 2Fg9IQ a4ajBk vP9nXo QUaueC m3YtLR FvZlgJ JJ8mAn HZtai3 6i3253 AC0Kra XmDUqf eUC8mr 84%3D INTERFACE [facility] [address] [facility] [address], [place], [address], 03/26/2024 08:41:24 03/26/20 24 03/26/2024 XR, knee, 4 or more view [email or web address] ?Encry pted=s hAaTro YD8dLq bEUv6g %2BXZw aYqtaq 0bqfl% 2Fg9IQ a4ajBk vP9nXo QUaueC m3YtLR Zlg JJ8mAn HZtai3 0n9930 AC0Kra XmDUqf eUC8mr 84%3D INTERFACE [facility] [address], [place], [address], 03/26/2024 08:41:26 04/13/20 24 04/13/2024 XR, lumba r spine , 2 view [email or web address] ?Encry pted=s hAaTro YD8dLq bEUv6g %2BXZw aYqtaq 0bqfl% 2Fg9IQ a4ajBk vP9nXo QUaueC m3YtLR FvZl JJ8[place] HZtai3 2f5998 AC0Kqa nmEVqC iKiQtr MwF INTERFACE [facility] [address], [place], [address], 04/13/2024 15:12:02 04/13/20 24 04/13/2024 XR, lumba r spine , 2 view [email or web address] ?Encry pted=s hAaTro YD8dLq bEUv6g %2BXZw aYqtaq 0bqfl% 2Fg9IQ a4ajBk vP9nXo QUaueC m3YtLR Zl JJ8[place] HZtai3 9m5855 AC0Kqa nmEVqC iKiQtr MwF INTERFACE [facility] [address] [facility] [address], [place], [address], 04/13/2024 15:12:05 07/16/20 24 07/13/2024 MRI, lumba r spine , w/o contr ast No observ ation record ed. [email or web address] [facility] [address] [facility] [address], [place], [address], 07/16/2024 13:04:58 07/16/20 24 07/13/2024 MRI, lumba r spine , w/o contr ast No observ ation record ed. MISSY [facility] [address] [facility] [address], [place], [address], 07/16/2024 12:59:25 07/16/20 24 07/13/2024 MRI, lumba r spine , w/o contr ast No observ ation record ed. [email or web address] [facility] [address] [facility] [address], [place], [address], 07/16/2024 12:59:38 07/23/20 24 07/23/2024 CT, lumba r spine , w/o contr ast No observ ation record ed. [email or web address] [facility] [address] [address], [place], [address], 07/23/2024 14:59:36 07/23/20 24 07/23/2024 CT, lumba r spine , w/o contr ast No observ ation record ed. MISSY [facility] [address] [address], [place], [address], 07/23/2024 14:59:53 07/31/20 24 07/31/2024 XR, hip + pelvi s, unila teral , 2 or 3 view [email or web address] ?Encry pted=s hAaTro YD8dLq bEUv6g %2BXZw aYqtaq 0bqfl% 2Fg9IQ a4ajBk vP9nXo QUaueC m3YtLR FvZlgJ JJ8mAn HZtai3 6n0877 AC0Kqb nWEUaa lKiQtr MwF INTERFACE [facility] [address] [facility] [address] [facility] [address], [place], [address], 07/31/2024 08:37:10 07/31/20 24 07/31/2024 XR, hip + pelvi s, unila teral , 2 or 3 view [email or web address]:/ [email or web address] ?Encry pted=s hAaTro YD8dLq bEUv6g %2BXZw aYqtaq 0bqfl% 2Fg9IQ a4ajBk vP9nXo QUaueC m3YtLR FvZlg J8[place] HZtai3 2v6727 AC0Kqb nWEUaa lKiQtr MwF INTERFACE [facility] [address], [place], [address], 07/31/2024 08:37:12 09/04/19 25 09/04/2024 XR, hip + pelvi s, unila teral , 2 or 3 view [email or web address] ?Encry pted=s hAaTro YD8dLq bEUv6g %2BXZw aYqtaq 0bqfl% 2Fg9IQ a4ajBk vP9nXo QUaueC m3YtLR FvZl [facility] HZtai3 7j9068 AC0Kqb H6CWae iKiQtr MwF INTERFACE [facility] [address], [place], [address], 09/04/2024 10:02:53 09/04/19 25 09/04/2024 XR, hip + pelvi s, unila teral , 2 or 3 view [email or web address] ?Encry pted=s hAaTro YD8dLq bEUv6g %2BXZw aYqtaq 0bqfl% 2Fg9IQ a4ajBk vP9nXo QUaueC m3YtLR FvZl JJ8[place] HZtai3 9e5669 AC0Kqb H6CWae iKiQtr MwF INTERFACE [facility] [address], [place], [address], 09/04/2024 10:02:56 Result Notes None recorded. Problems Name Problem SNOMED Code Status Onset Date Resolution Date Notes Provider Name and Address Organization Details Recorded Time Osteoarthritis of knee 207758694 Active 2023 Lana Monet, PRISCILA [address], [place], [address], [facility] 09:40:21 Problem Notes None recorded. Procedures Surgical History Date Name Laterality Status Provider Name and Address Organization Details Recorded Time 4 Sports Knee 4&1 completed Lana Monet CNP [address], [place], [address], [facility] 07/31/2024 08:11:26 4 Sports Knee 4&1 completed Lana Monet CNP [address], [place], [address], [facility] 03/26/2024 08:41:04 4 Sports Knee 4&1 completed Lana Monet CNP [address], [place], [address], [facility] 12/15/2023 09:40:09 2 Hip Surgery completed Shelley Pitt [facility] 09/04/2024 09:41:02 2 Knee Surgery completed Shelley Pitt [facility] 09/04/2024 09:41:02 Knee Surgery completed Shelleybalaji Pitt [facility] 09/04/2024 09:41:02 Imaging Results Imaging Date Name Status LastModified by Organiz ation Details LastModified Time 03/26/2024 XR, knee, 4 or more view completed INTERFACE [facility] [address], [place], [address], 03/26/2024 08:41:24 03/26/2024 XR, knee, 4 or more view completed INTERFACE [facility] [address], [place], [address], 03/26/2024 08:41:26 04/13/2024 XR, lumbar spine, 2 view completed INTERFACE [facility] [address], [place], [address], 04/13/2024 15:12:02 04/13/2024 XR, lumbar spine, 2 view completed INTERFACE [facility] [address], [place], [address], 04/13/2024 15:12:05 07/13/2024 MRI, lumbar spine, w/o contrast completed [email or web address] [facility] [address] [place] [address], [address], 07/16/2024 13:04:58 07/13/2024 MRI, lumbar spine, w/o contrast completed MISSY [facility] [address], [address], 07/16/2024 12:59:25 07/13/2024 MRI, lumbar spine, w/o contrast completed [email or web address] [facility] [address], [address], 07/16/2024 12:59:38 07/23/2024 CT, lumbar spine, w/o contrast completed [email or web address] [facility] [address], [address], 07/23/2024 14:59:36 07/23/2024 CT, lumbar spine, w/o contrast completed MISSY [facility] [address] [place] [address], [address], 07/23/2024 14:59:53 07/31/2024 XR, hip + pelvis, unilateral, 2 or 3 view completed INTERFACE [facility] [address], [place], [address], 07/31/2024 08:37:10 07/31/2024 XR, hip + pelvis, unilateral, 2 or 3 view completed INTERFACE [facility] [address], [place], [address], 07/31/2024 08:37:12 09/04/2024 XR, hip + pelvis, unilateral, 2 or 3 view completed INTERFACE [facility] [address], [place], [address], 09/04/2024 10:02:53 09/04/2024 XR, hip + pelvis, unilateral, 2 or 3 view completed INTERFACE [facility] [address], [place], [address], 09/04/2024 10:02:56 Procedure Notes None recorded. Medical Equipment None Reported. Allergies Allergen ID Allergen Name Allergen Category Reaction Reaction Severity Criticality Documentation Date Start Date Code Code System Note Provider Name and Address Organization Details Recorded Time 54581 penicilli n G benzathin e medicatio n Not available Not available Not available 10/03/20232011 7982 RxNorm Aller gyRea ction : 'Skin React ion'; Not Available [facility] 12:31[facility]49 Medications Name Sig Start Date Stop Date Status Note LastModified by Organization Details LastModified Time clindamycin HCl 300 mg capsule TAKE 2 CAPSULES BY MOUTH ONE HOUR PRE-OP. MAY TAKE A PROBIOTIC . active Not Available Not Available No t Available azithromyci n 250 mg tablet 07/02 completed Not Available Not Available Not Available prednisone 20 mg tablet TAKE 2 TABLETS BY MOUTH DAILY FOR 4 DAYS THEN 1 TABLET DAILY FOR 4 DAYS 07/02 completed Not Available Not Available Not Available ciprofloxac in 500 mg tablet 07/02 completed Not Available Not Available Not Available acetaminoph en ER 650 mg tablet,exte nded release TAKE 2 TABLETS BY MOUTH EVERY 8 HOURS DIRECTED FOR 30 DAYS active Not Available Not Available No t Available pseudoephed rine-guaife nesin ER 80-700 mg tablet,exte nded release DO NOT DRIVE WHILE ON THIS MEDICATIO N 07/02 completed Statu s: 'Curr ent'; Not Available Not Available Not Available propranolol 20 mg tablet TAKE 1 TABLET BY MOUTH DAILY NEEDED active Not Available Not Available No t Available carbidopa 25 mg-levodopa 100 mg tablet TAKE 1 TABLET BY MOUTH THREE TIMES DAILY active Not Available Not Available No t Available GaviLyte-G 236 gram-22.74 gram-6.74 gram-5.86 gram oral solution MIX AND DRINK IN 8-OUNCE INCREMENT S EVERY 10 - 15 MINUTES DIRECTED. 07/02 completed Not Available Not Available Not Available Vitals Date Recorded Body height Body mass index (BMI) Body weight Provider Name and Address Organization Details Last Updated DateTime 04/13/2024 175.26 cm 26.9 kg/m2 17754.81 g GAURAV IBARRA [facility] 04/13/2024 15:07:09 Date Recorded Body height Body mass index (BMI) Body weight Provider Name and Address Organization Details Last Updated DateTime 07/03/2024 175.26 cm 26.9 kg/m2 48962.81 g Gege duke [facility] 07/03/2024 14:21:34 Date Recorded Body height Body mass index (BMI) Body weight Provider Name and Address Organization Details Last Updated DateTime 07/31/2024 175.26 cm 26.9 kg/m2 24064.81 g KAYLYN EID [facility] 07/31/2024 08:27:36 Date Recorded Body height Body mass index (BMI) Body weight Provider Name and Address Organization Details Last Updated DateTime 09/04/2024 175.26 cm 26.9 kg/m2 91822.81 g Shelley Pitt [facility] 09/04/2024 09:22:23 Social History Question Answer Notes LastModified by Organizat ion Details LastModified Time Tobacco Smoking Status [facility] 09/04/2024 09:22:15 How Many Times Per Week Do You Consume Alcohol? Less Than 1 Time Per Week Information not available 09/04/2024 Do You Or Have You Ever Used E-cigarettes Or Vape? Never Used Electronic Cigarettes Information not available 09/04/2024 What Is Your Relationship Status? Information not available 09/04/2024 Do You Use Any Illicit Or Recreational Drugs? No Information not available 09/04/2024 How Many Years Have You Smoked Tobacco? 0 Information not available 09/04/2024 Do You Or Have You Ever Used Any Other Forms Of Tobacco Or Nicotine? No Information not available 09/04/2024 Sex: Unknown Functional Status None recorded. Mental Status None recorded. Family History Nothing Reported. Medical History No medical history recorded. Past Encounters Encounter ID Performer Location Encounter Start Date Encounter Closed Date Diagnosis/Indication Diagnosis SNOMED-CT Code Diagnosis ICD10 Code Diagnosis Note [id number] Lana Monet CNP [facility] [address] [place] [address] 12/15/2023 09:10:00 12/29/2023 08:56:37 Osteoarthritis of knee 662378084 M17.9 [id number] Lana Monet CNP [facility] [address] [place] [address] 03/26/2024 07:56:23 04/11/2024 08:25:24 Pain of left knee joint 4211089839 01874 M25.047 [id number] KARMA WEAVER PA-C [place] [address] [place] [address] 04/13/2024 14:52:14 05/07/2024 10:46:33 Low back pain 310445611 M54.50 [id number] KARMA WEAEVR PA-C [facility] [address] [place] [address] 07/03/2024 13:58:35 07/27/2024 08:39:20 Low back pain 182104652 M54.50 Lumbar radiculopathy 128 341896 M54.16 [id number] Lana Moted, [employer] [facility] [address] [place] [address] 07/31/2024 08:15:55 08/16/2024 15:08:46 History of total replacement of left hip joint 8318971959 141020 Z96.586 [id number] KARMA WEAVER PA-C [facility] - [facility] [address] [place] [address] 08/15/2024 15:10:31 08/27/2024 09:36:09 Lumbar radiculopathy 994367101 M54.16 [id number] CARON Ramirez [address] [place] [address] 09/04/2024 09:11:57 09/04/2024 11:06:26 History of total replacement of left hip joint 7080717108 211402 Z96.642 Osteoarthr itis of left knee joint 3658976461 96468 M17.12 Health Concerns Section Related Observation LastModified by Organization Detai ls LastModified Time None Recorded Concern Status LastModified by Organization Details LastModified Time None Recorded Advance Directives Directive None Recorded Payers Encounter Date Sequence Insurance Name Policy Number Policy Fernandes Covered Member ID Fernandes Member ID Guarantor Name 04/13/2024 2 [facility] - PLAN 1 (MEDICARE SUPPLEMENT) [id number] 01 Giuseppe Sergio Sergio [place] [id number] Giuseppe Sergio Lewonchuk 04/13/2024 1 [place] [employer] Giuseppe Sergio Carlosonchuk [id number] Giuseppe Sergio Lewonchuk 07/03/2024 2 [facility] - PLAN 1 (MEDICARE SUPPLEMENT) [id number] 01 Giuseppe Sergio Sergio [place] [id number] Giuseppe G Lewonchuk 07/03/2024 1 [place] [employer] Giuseppe Sergio Carlosonchuk [id number] Giuseppe Sergio Lewonchuk 07/31/2024 2 [facility] - PLAN 1 (MEDICARE SUPPLEMENT) [id number] 01 Giuseppe Sergio Sergio [place] [id number] Giuseppe Sergio Lewonchuk 07/31/2024 1 [place] [employer] Giuseppe Sergio Lewon[place]uk [id number] Giuseppe Sergio Lewonchuk 08/15/2024 2 [facility] - PLAN 1 (MEDICARE SUPPLEMENT) [id number] 01 Giuseppe Sergio Sergio [place] [id number] Giuseppe Sergio Lewonchuk 08/15/2024 1 [place] [employer] Giuseppe Sergio Carlosonchuk [id number] Giuseppe Sergio Lewonchuk 09/04/2024 2 [facility] - PLAN 1 (MEDICARE SUPPLEMENT) [id number] 01 Giuseppe Barrera [id number] Giuseppe Barrera 09/04/2024 1 [place] [facility] Giuseppe Barrera [id number] Giuseppe Barrera Notes Date Note Type Note Provider Name and Address Organization Details Recorded Time 04/13/2024 text/html I am seeing the patient today under the supervision of Dr. Stein who was available but who did not see the patient. HPI: Patient is a pleasant 34-year-old male who presents for evaluation of ongoing low back pain. Patient reports he has been dealing with about 7 months of low back pain and soreness. He reports about 1 to 2 months ago with his most recent flareup with muscle spasms after he mowed his lawn. He reports he has been previously seen and treated by his primary care physician who put him on steroid Dosepak which she found helpful physical therapy has also been helpful for him. He does report that his pain is specifically in his low back and appears to be more soreness at this time denies any leg symptoms. He reports that his positions of comfort when sleeping at night is on his side with his legs and knees bent to 90 degrees with a pillow between. He does report that about 40 years ago he had an injury which caused a compression fracture in his low back he did not require surgery at this time however it did take many years to heal from this. He reports he also uses Tylenol as needed when the soreness builds up and this has been helpful. TREATMENTS: As noted in HPI Past family, medical, social history and review of systems has been reviewed, updated and signed by me and is located in the patient? ? ?s chart. Examination: The patient is well appearing, alert and oriented x3 and in no acute distress. Gait is not antalgic. Patient is able to transition from seated to standing position without difficulty. Inspection of the spine reveals no step off, deformity or overlying skin changes or atrophy. The spine is nontender over the paravertebral musculature. Nontender over TFL, greater trochanters or posterior hip musculature. Range of motion of the Lumbar spine is 80% of normal Range of motion of the hips and knees is full without discomfort. Strength in lower extremity myotomes 5/5 bilaterally. Sensation intact. Re? e xes normal 2+at knee and ankle. No ankle clonus X-rays ordered, obtained and reviewed at [facility], 2 views of the lumbar spine reveals no fractures, instability or bony lesions. Degenerative disc disease noted with loss of disc height throughout the lumbar spine. Previous L1 compression fracture with vertebral height changes noted on examination. Patient also has an intact left total hip Arthroplasty. Impression/Plan: Low back pain. Discussed with th this could be due to some of the arthritis in his low back however he is not having any radicular symptoms down his leg he is doing well with conservative treatmente patient at this time as ordered by his primary care physician. I discussed that we can follow-up in 8 weeks to ensure he is not having any return of more severe symptoms or any leg pain at that time. However I would encourage the patient to continue with his physical therapy and Tylenol as needed. Patient expressed understanding agreement plan. All questions answered. KARMA WEAVER PA-C [address] [place] [address] [address] [facility], [place], [address], [facility] [place] [facility] 04/16/2024 08:26:07 07/03/2024 text/html I am seeing the patient today under the supervision of Dr. Tompkins who was available but who did not see the patient. HPI: Patient is a pleasant 34-year-old male who presents for evaluation of ongoing low back pain. Patient states he has had no significant changes to his pain continued in physical therapy for his primary care feels that he is having more soreness and discomfort versus pain feels more comfortable sleeping on his left side and his right side he is having right knee weakness and concerns. He does state that he is discontinued utilizing Tylenol on a daily basis to see what his baseline pain and comfort levels are. He also does state that he has decreased his carbidopa levodopa as he is not convinced that he has a parkinsonian tremor but has essential tremor. TREATMENTS: As noted in HPI Past family, medical, social history and review of systems has been reviewed, updated and signed by me and is located in the patient? ? ?s chart. Examination: The patient is well appearing, alert and oriented x3 and in no acute distress. Gait is not antalgic. Patient is able to transition from seated to standing position without difficulty.Inspecti on of the spine reveals no step off, deformity or overlying skin changes or atrophy.The spine is nontender over the paravertebral musculature. Nontender over TFL, greater trochanters or posterior hip musculature.Range of motion of the Lumbar spine is 80% of normalRange of motion of the hips and knees is full without discomfort.Strength in lower extremity myotomes 5/5 bilaterally.Sensati on intact.Re? e xes normal 2+at knee and ankle. No ankle clonus X-rays not indicated at today's visit Impression/Plan: Low back pain Lumbar degenerative disc disease at this time as patient has had not had significant alleviation of symptoms and feels she may have some lower extremity weakness I recommend an MRI to evaluate the lumbar spine will plan to follow-up for an MRI review. Discussed with the patient he should not discontinue medications as prescribed by other providers without discussing this with them as there may be risk for side effects from decreasing medication usage. Patient expressed concerns about side effects for soft tissues and muscle health due to the carbidopa-levodopa he states he is feeling better off of it again I cautioned him to make sure that he is utilizing these medications as prescribed or discusses this with those providers. Patient expressed understanding of the plan all her questions asked and answered.frenting speech recognition manager web software was used to create portions of this document. An attempt at proofreading has been made to minimize errors. Please call for corrections. KARMA WEAVER PA-C [address], [place], [address], [facility] 07/03/2024 15:38:09 07/31/2024 text/html Giuseppe is here today for follow-up of his left knee has known degenerative joint disease had a previous cortisone injection which gave relief until recently. He presents today for further evaluation.He reports that he fell about a month ago landing on his left hip he has had some left hip discomfort since then. He reports that the discomfort that he was experiencing has improved significantly Lana Monet, PRISCILA [address], [place], [address], [facility] 07/31/2024 09:43:19 08/15/2024 text/html I am seeing the patient today under the supervision of Dr. Tompkins who was available but who did not see the patient. HPI: Patient is a pleasant 74-year-old male who presents for evaluation of ongoing low back pain. Patient presents today stating that his low back pain is a 2-3 out of 10 he is significantly better since previous visit however does endorse a recent fall and has been seen in our office by Lana jean due to left knee and hip pain. He denies any radicular symptoms into the lower extremities from his low back pain. He states that he gets up and ambulates more he has a significant decrease in pain in the back. TREATMENTS: As noted in HPI Past family, medical, social history and review of systems has been reviewed, updated and signed by me and is located in the patient? ? ?s chart. Examination: The patient is well appearing, alert and oriented x3 and in no acute distress. Gait is not antalgic. Patient is able to transition from seated to standing position without difficulty.Inspecti on of the spine reveals no step off, deformity or overlying skin changes or atrophy.The spine is nontender over the paravertebral musculature. Nontender over TFL, greater trochanters or posterior hip musculature.Range of motion of the Lumbar spine is 80% of normalRange of motion of the hips and knees is full without discomfort.Strength in lower extremity myotomes 5/5 bilaterally.Sensati on intact.Re? e xes normal 2+at knee and ankle. No ankle clonus MRI lumbar spine dated 07/13/2024 diffuse disc bulge with mild changes in the central canal at T12-L1, L1-L2 wedge compression deformity 80% loss of height with some retropulsion of vertebral body into the canal with mild stenosis, L2-L3 diffuse disc bulge with no central canal stenosis, L3-L4 diffuse disc herniation and small lesion in the inferior endplate at L3 with edema, L4-L5 diffuse disc bulge with joint arthropathy and Schmorl's node at the endplate of L5-S1 diffuse disc herniation no significant compression. CT scan lumbar spine ordered and independently reviewed due to concerns of the endplate change at the L3 vertebrae noted in the MRI and being unable to rule out a cancerous process was indicative of a Schmorl's node deformity at the inferior endplate of L3. Impression/Plan: Low back pain Lumbar degenerative disc disease discussed at this time I would recommend continuing just his normal daily activities and core strengthening as needed. He is not having significant radicular symptoms that would lead me to believe he needs any injections into the back he feels that he is not being slowed down by the back pain. Patient agrees with plan moving forward he will follow-up in 3 to 4 months to assess how he is doing overall. [facility] speech recognition manager web software was used to create portions of this document. An attempt at proofreading has been made to minimize errors. Please call for corrections. KARMA WEAVER PA-C [address], [place], [address], [facility] [place] [facility] 08/15/2024 15:49:12 09/04/2024 text/html I am seeing the patient today under the supervision of Dr. Servin who was available but who did not see the patient. HPI:Patient is a 74-year-old male who presents today for recheck of his left hip. He has a history of left total hip replacement by Dr. Morgan on 02/10/2012. About a month ago patient sustained a fall directly onto the lateral aspect of his left hip. Has had some mild pain but is able to weight-bear fine. His main concern at this point is his left knee that he recently had injected. Feels like it causes him instability on the left side. Patient already has Parkinson's as well. Past family, medical, social history and review of systems has been reviewed, updated and is located in the patient? s chart. Examination: Well-appearing 74-year-old male in no acute distress. Alert and oriented x 3. Ambulates with an antalgic gait. Left hip reveals no erythema, warmth, ecchymosis, swelling. Well-healed surgical incision. Very minimal tenderness to palpation over the lateral aspect of the hip. Full range of motion of the hip in all directions with no discomfort. Hip strength 5/5 against resistance in all directions. Negative NIA test. Negative Stinchfield test. Calf is soft and nontender. Left knee has tenderness over both medial and lateral joint lines. There is some limited range of motion due to increased pain. There is crepitance. Mild laxity medially. 2 views of the left hip obtained and independent reviewed in the office today reveal left total hip arthroplasty in good alignment. No evidence of any osteolysis or loosening. No stem subsidence. No fracture. Impression:Left knee osteoarthritis, left hip contusion Plan:Reassured the patient that his left hip is normal today which she is not surprised by. His main problem at this point is continued left knee pain which has been leading to some mild pain in his hip. Previous cortisone injection about 2 months ago which provided him with some relief. He is hoping to get a little bit more relief and I did offer him gel injection today which she is willing to try. Authorization sent for this today. Also given a prescription today for Tylenol 650 mg to take 3 times a day as needed for pain. Patient can also ice and use heat as needed. He will follow back up once gel is injections approved for the left knee. All patient questions and concerns answered today. Ottoniel Estrada PA-C [address], [place], [address], [facility] 09/04/2024 11:06:23
--- OUTSIDE RECORDS SUMMARY | 2024-09-19 08:32 | XMS_ITS | Encounter Summary ---
Author Organization [facility] Address [address] [place] [address] Phone Care Team Providers Care Grader Tender Name Role Phone Raiza Mancia PATIENT INSURANCE CLERK-C Primary Care Provider + Encounter Details Date Type Department Care Team (Late st Contact Info) Description 08/24/2024 Orders Only [facility] [address] [facility] [address] [place] [phone] Javad Ahn MD [address] [facility] [address] [place] [address] Stage 3a chronic kidney disease (HCC); Total nephrectomy; Cyst of kidney Social History Tobacco Use Types Packs/Day Years [...] Orientation Straight 01/18/2023 11 :11 AM EDT documented as of this encounter Plan of Treatment Upcoming Encounters Date Type Department Care Team (Late st Contact Info) Description 08/22/2025 8:00 AM EST Office Visit [facility] [address] [facility] [address] [place] [phone] Javad Ahn MD [address] [facility] [address] [place] [address] documented as of this encounter Procedures Procedure Name Priority Date/Time Associated Diagnosis Comments MICROSCOPIC EXAMINATION - DO NOT USE Routine 08/16/2024 3:41 PM EST PROTEIN / CREATININE RATIO, URINE Routine 08/16/2024 3:41 PM EST VITAMIN D 25 HYDROXY Routine 08/16/2024 3:41 PM EST URINALYSIS WITH MICROSCOPIC Routine 08/16/2024 3:41 PM EST CBC AND DIFFERENTIAL Routine 08/16/2024 3:41 PM EST URIC ACID Routine 08/16/2024 3:41 PM EST PHOSPHATE ( PHOSPHORUS) Routine 08/16/2024 3:41 PM EST PTH, INTACT Routine 08/16/2024 3:41 PM EST MAGNESIUM Routine 08/16/2024 3:41 PM EST COMPREHENSIVE METABOLIC PANEL Routine 08/16/2024 3:41 PM EST documented in this encounter Results * PTH, Intact (08/16/2024 3:41 PM EST) PTH 44 15 - 65 pg/mL [facility] 08/16/2024 3:41 PM EST 08/16/2024 us Javad Ahn MD LAB BLOOD ORDERABLES Final Re sult [facility] [address] [place] [address] * Magnesium (08/16/2024 3:41 PM EST) Magnesium 2.0 1.6 - 2.3 mg/dL [facility] 08/16/2024 3:41 PM EST 08/16/2024 us Javad Ahn MD LAB BLOOD ORDERABLES Final Re sult Performing Organization Address [facility]/ZIP Co de Phone Number [facility] [address] [place] [address] * Phosphorus (08/16/2024 3:41 PM EST) Phosphorus 4.0 2.8 - 4.1 mg/dL [facility] 08/16/2024 3:41 PM EST 08/16/2024 us Javad Ahn MD LAB BLOOD ORDERABLES Final Re sult Performing Organization Address [facility] de Phone Number [facility] [address] [place] [address] * Uric Acid (08/16/2024 3:41 PM EST) Uric Acid 5.6 3.8 - 8.4 mg/dL [facility] Comment:Therapeutic target f or gout patients: <6.0 08/16/2024 3:41 PM EST 08/16/2024 us Javad Ahn MD LAB BLOOD ORDERABLES Final Re sult Performing Organization Address [facility] Co de Phone Number [facility] [address] [place] [address] * Vitamin D 25 Hydroxy (08/16/2024 3:41 PM EST) Vitamin D, 25-OH, Total 38.5 30.0 - 100.0 ng/mL [facility] Comment: Vitamin D deficiency has been defined by the Devol of Medicine and an Endocrine Society practice guideline as a level of serum 25-OH vitamin D less than 20 ng/mL (1,2). The Endocrine Society went on to further define vitamin D insufficiency as a level between 21 and 29 ng/mL (2). 1. IOM (Devol of Medicine). 2010. Dietary reference ?? intakes for calcium and D. [place]: The ?? National [employer]ovo [employer] Press. 2. Lavell MF, Derrick NC, Blanca BARBOZA, et al. ?? Evaluation, treatment, and prevention of vitamin D ?? deficiency: an Endocrine Society clinical practice ?? guideline. JCEM. 2010; 96(7):1911-30. 08/16/2024 3:41 PM EST 08/16/2024 Javad Ahn MD LAB BLOOD ORDERABLES Final Re sult Performing Organization Address City/[facility]/ZIP Co de Phone Number [facility] [address] [place] [address] * Protein, Total, Random Urine w/Creatinine (Protein/Creat Ratio) (08/16/2024 3:41 PM EST) Creatinine, Ur 111.5 Not Estab. mg/dL [facility] Protein, Ur 8.7 Not Estab. mg/dL [facility] Urine Protein/Creatin ine Ratio 78 0 - 200 mg/g creat [facility] 08/16/2024 3:41 PM EST 08/16/2024 Javad Ahn MD LAB URINE ORDERABLES Final Re sult Performing Organization Address City/[facility]/ZIP Co de Phone Number [facility] [address] [place] [address] * Microscopic Examination (08/16/2024 3:41 PM EST) WBC, Urine None seen 0 - 5 /hpf [facility] RBC, Urine None seen 0 - 2 /hpf [facility] Squamous Epithelial, Urine None seen 0 - 10 /hpf [facility] Casts None seen None seen /lpf [facility] Bacteria, Urine None seen None seen/Few [facility] 08/16/2024 3:41 PM EST 08/16/2024 us Javad Ahn MD LAB MICROBIOLOGY - GENERAL OR DERABLES Final Result [facility] [address] [place] [address] * Urinalysis with microscopic (08/16/2024 3:41 PM EST) Specific Rupert, Urine 1.020 1.005 - 1.030 [facility] pH Urine 6.5 5.0 - 7.5 [facility] [phone] Color, Urine Yellow Yellow [facility] [phone] Appearance Urine Clear Clear [facility] WBC Esterase Urine Negative Negative [facility] [phone] Protein, Ur Negative Negative/Tra ce [facility] [phone] Glucose, Ur Negative Negative [facility] [phone] Ketones, Urine Negative Negative [facility] Blood Urine Negative Negative [facility] [phone] Bilirubin Urine Negative Negative [facility] [phone] Urobilinogen Urine 0.2 0.2 - 1.0 mg/dL [facility] [phone] Nitrite, Urine Negative Negative [facility] Microscopic Examination Comment [facility] Comment:Microscopic follows if indicated. Other Microsc. Observations See below: [facility] Comment:Microscopic was zaira cated and was performed. 08/16/2024 3:41 PM EST 08/16/2024 us Javad Ahn MD LAB URINE ORDERABLES Final Re sult [facility] [address] [place] [address] * (ABNORMAL) Comprehensive Metabolic Panel (08/16/2024 3:41 PM EST) Glucose 106(H) 70 - 99 mg/dL [facility] BUN 15 8 - 27 mg/dL [facility] Creatinine 1.24 0.76 - 1.27 mg/dL [facility] eGFR CKD-EPI CR 2020 61 >59 mL/min/1.7 3 [facility] BUN/Creatinine Ratio 12 10 - 24 [facility] Sodium 140 134 - 144 mmol/L [facility] Potassium 4.2 3.5 - 5.2 mmol/L [facility] Chloride 100 96 - 106 mmol/L [facility] Bicarbonate (CO2) 25 20 - 29 mmol/L [facility] Calcium 9.8 8.6 - 10.2 mg/dL [facility] Total Protein 7.0 6.0 - 8.5 g/dL [facility] Albumin 4.5 3.8 - 4.8 g/dL [facility] Globulin 2.5 1.5 - 4.5 g/dL [facility] Total Bilirubin 1.1 0.0 - 1.2 mg/dL [facility] Alkaline Phosphatase 63 44 - 121 IU/L [facility] AST (SGOT) 26 0 - 40 IU/L [facility] ALT (SGPT) 20 0 - 44 IU/L [facility] 08/16/2024 3:41 PM EST 08/16/2024 us Javad Ahn MD LAB BLOOD ORDERABLES Final Re sult [facility] [address] [place] [address] * (ABNORMAL) CBC and Differential (08/16/2024 3:41 PM EST) WBC 4.4 3.4 - 10.8 x10E3/uL [facility] RBC 6.79(H) 4.14 - 5.80 x10E6/uL [facility] Hemoglobin 14.6 13.0 - 17.7 g/dL [facility] Hematocrit 47.9 37.5 - 51.0 % [facility] MCV 71(L) 79 - 97 fL [facility] MCH 21.5(L) 26.6 - 33.0 pg [facility] MCHC 30.5(L) 31.5 - 35.7 g/dL [facility] RDW 17.6(H) 11.6 - 15.4 % [facility] Platelets 252 150 - 450 x10E3/uL [facility] Neutrophils Relative 68 Not Estab. % [facility] Lymphocytes Relative 19 Not Estab. % [facility] Monocytes 9 Not Estab. % [facility] Eosinophils Relative 2 Not Estab. % [facility] Basophils Relative 2 Not Estab. % [facility] Neutrophils Absolute 3.0 1.4 - 7.0 x10E3/uL [facility] Lymphocytes Absolute 0.8 0.7 - 3.1 x10E3/uL [facility] Monocytes Absolute 0.4 0.1 - 0.9 x10E3/uL [facility] Eosinophils Absolute 0.1 0.0 - 0.4 x10E3/uL [facility] Basophils Absolute 0.1 0.0 - 0.2 x10E3/uL [facility] Immature Granulocytes 0 Not Estab. % [facility] Immature Grans (Absolute) 0.0 0.0 - 0.1 x10E3/uL [facility] 08/16/2024 3:41 PM EST 08/16/2024 us Javad Ahn MD LAB BLOOD ORDERABLES Final Re sult [facility] [address] [place] [address] documented in this encounter Visit Diagnoses Diagnosis Stage 3a chronic kidney disease (HCC) Total nephrectomy Cyst of kidney documented in this encounter Care Teams Grader Tender Relationship Specialty Start Date End Date Raiza Mancia NP-C [address], [address] [place] [address] PCP - General Nurse Practitioner 08/22/24 documented as of this encounter
--- OUTSIDE RECORDS SUMMARY | 2024-09-19 08:32 | XMS_ITS | Encounter Summary ---
Author Organization [facility] Address [address] [address] Phone Care Team Providers Care Funeral Location Manager Name Role Phone Raiza Mancia ASSISTANT [facility] ATTORNEY-C Primary Care Provider + Encounter Details Date Type Department Care Team (Late st Contact Info) Description 08/22/2024 8:00 AM EST Office Visit [facility] [address] [address] Javad Ahn MD [address] [address] Stage 3a chronic kidney disease (HCC) (Primary Dx); Total nephrectomy; Renal cell carcinoma <Unspecified side> (HCC); Malignant neoplasm of prostate (HCC); Cyst of kidney Social History Tobacco Use [...] AM EDT documented as of this encounter Last Filed Vital Signs Vital Sign Reading [...] Mass Index 29.32 08/22/2024 8:22 AM EST documented in this encounter Progress Notes * Javad Ahn MD - 08/22/2024 8:00 AM EST [facility] Office Visit Patient Name: Giuseppe Barrera, Male Date of : 1950, 74 y.o. Date: 08/22/2024 History of Present Illness Giuseppe Barrera is a 74 y.o. male who is here for follow up of multiple medical problems including ckd, single functioning kidney and renal cell carcinoma. Interim history since the last encounter was reviewed. No acute complaints were voiced. Denied chest pain, flank pain, hematuria, hemoptysis or fevers. All other systems were reviewed and negative. Available lab results were reviewed and discussed. Medication list was reviewed and discussed. Any available out of office blood pressure readings were reviewed and discussed. CV and Renal risk was assessed and discussed. The following portions of the patient's chart were reviewed in this encounter and updated as appropriate: Allergies Meds Problems Med Hx Surg Hx Fam Hx Past Medical History Past Medical History: Diagnosis Date Kidney cancer (HCC) stage TID RCC right Past Surgical History Past Surgical History: Procedure Laterality Date HIP ARTHROPLASTY Left NEPHRECTOMY Right Family History Family History Problem Relation Age of Onset Heart disease Mother A-Fib Kidney disease Father right kidney removed 55yo cancer Cancer Father lung cancer Social History Social History Tobacco Use Smoking status: Never Smokeless tobacco: Never Substance Use Topics Alcohol use: No Medication List Current Outpatient Medications Medication Sig Dispense Refill acetaminophen (Acetaminophen 8 Hour) 650 MG 8 hr tablet Take 650 mg by mouth every 8 (eight) hours if needed clindamycin (CLEOCIN) 300 MG capsule Take 600 mg by mouth cyanocobalamin (VITAMIN B-12) 1000 MCG tablet Take 1,000 mcg by mouth 1 (one) time each day ferrous sulfate 325 (65 Fe) MG tablet Take 325 mg by mouth 1 (one) time each day with breakfast fluorouracil (EFUDEX) 5 % cream Multiple Vitamin (Multivitamin Adult) tablet Take 1 tablet by mouth 1 (one) time each day propranolol (INDERAL) 20 MG tablet Take 20 mg by mouth 1 (one) time each day if needed (Patient nottaking: Reported on 08/22/2024) No current facility-administered medications for this visit. Allergy List Allergies Allergen Reactions Penicillins Other (see comments) Physical Exam BP 149/84 (BP Location: Right upper arm, Patient Position: Sitting) Pulse 72 Ht 5' 7.5 (1.715 m) Wt 190 lb (86.2 kg) SpO2 97% BMI 29.32 kg/m?? Last 3 office BP readings: BP Readings from Last 3 Encounters: 08/22/24 149/84 08/24/23 134/86 10/15/21 120/80 Repeat bp 117/81 mild parkinosnian tremor and anxiety noted General: Well developed well nourished in no acute distress Neuro: alert interactive without delirium. + tremore and slower fascies c/w parkinsons Eyes: anicteric ENT: moist membranes, no stridor Cardiovascular: regular rate and rhythm, no rub Pulmonary: no distress or tachypnea Abdomen: soft and nondistended Genitourinary: no suprapubic tenderness or bladder distension to palpation Musculoskeletal: No bony tenderness or deviation Dermatologic: No visible rash on exposed skin Hematologic: no petechiae or ecchymoses on exposed skin Extremities: edema is none + varicosities Labs Chemistry Lab Units 08/16/24 1541 04/15/23 1039 CREATININE mg/dL 1.24 1.4* BUN mg/dL 15 10 POTASSIUM mmol/L 4.2 4.3 SODIUM mmol/L 140 140 CO2 mmol/L 25 28 CHLORIDE mmol/L 100 102 ALBUMIN g/dL 4.5 4.5 EGFRNAFR ML/MIN/1.73 M2 -- 55 EGFR mL/min/1.73 61 -- HEMOGLOBIN A1C % -- 5.0 WBC AUTO x10E3/uL 4.4 4.3 HEMATOCRIT % 47.9 45.4 HEMOGLOBIN g/dL 14.6 13.9 PLATELETS AUTO x10E3/uL 252 278 Bone Mineral Lab Units 08/16/24 1541 04/15/23 1039 CALCIUM mg/dL 9.8 9.6 PHOSPHORUS mg/dL 4.0 3.1 ALK PHOS IU/L 63 52 PTH pg/mL 44 58 VITAMIN D NG/ML -- 31.9 VIT D 25 HYDROXY ng/mL 38.5 -- Urine Lab Units 08/16/24 1541 PROT/CREAT RATIO UR mg/g creat 78 No lab exists for component: IRON SATURATION No lab exists for component: CYCLOSPORITR Assessment & Plan 1. Stage 3a chronic kidney disease (HCC) 2. Total nephrectomy 3. Renal cell carcinoma <Unspecified side> (HCC) 4. Malignant neoplasm of prostate (HCC) 5. Cyst of kidney IMPRESSION: 1. Chronic kidney disease stage 3a - due to a single functioning kidney. S/p nephrectomy. Baseline GFR about 50 mL per minute. Trending stable and improved in 08/2024 with creatinine 1.2 mg/dl and bland urine 2. Renal cell carcinoma status post neph[place] [address] Cabrales. This is without recurrence.The tumor size was 4.5 cm and was confined to the kidney. It was renal cell carcinoma chromophobetype predate of surgery May 18, 2016. I do not have access to this years images but Negro tells me there was no recurrence or changes 3. YAJAIRA post op 2016 with doubling of serum creatinine due to nephrectomy - has remained stable at the new baseline since then 4. HTN? - recheck was 145/78 today. He tells me it is watched closely and always 120/80 - he did come down upon recheck and there is a tremor that confound the readings - seems ideal today on no meds 5. 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 Prostate Cancer - low grade - active surveillance - psa 7-9 - tells me this is nubia 6 and lowrisk 7. Parkinson's - f/b Dr Cheng - on and off meds Discussion: -He does not appear to have hypertension. He does not have diabetes or other medications and he should do well. -GFR remains stable and improved the last few years -Use caution interpreting BP readings as he has a parkinsonian tremor and white coat effect -Yearly monitoring of renal panel, urine protein to creatinine ratio and other electrolytes and parathyroid. -avoid nephrotoxins -rtc 1 year with labs Orders Placed This Encounter Comprehensive Metabolic Panel Uric Acid Magnesium Phosphorus PTH, Intact Vitamin D 25 Hydroxy CBC and Differential Protein, Total, Random Urine w/Creatinine (Protein/Creat Ratio) Urinalysis with microscopic Return in about 1 year (around 08/22/2025) for OV with labs 1-2 weeks prior to visit. Javad Ahn MD documented in this encounter Plan of Treatment Upcoming Encounters Date Type Department Care Team (Late st Contact Info) Description 08/22/2025 8:00 AM EST Office Visit [facility] [address] [address] Javad Ahn MD [address] [address] Scheduled Orders Name Type Priority Associated Diagnoses Orde r Schedule Comprehensive Metabolic Panel Lab Routine Stage 3a chronic kidney disease (HCC) Total nephrectomy Renal cell carcinoma <Unspecified side> (HCC) Malignant neoplasm of prostate (HCC) Cyst of kidney Expected: 08/22/2025, Expires: 09/22/2025 Uric Acid Lab Routine Stage 3a chronic kidney disease (HCC) Total nephrectomy Renal cell carcinoma <Unspecified side> (HCC) Malignant neoplasm of prostate (HCC) Cyst of kidney Expected: 08/22/2025, Expires: 09/22/2025 Magnesium Lab Routine Stage 3a chronic kidney disease (HCC) Total nephrectomy Renal cell carcinoma <Unspecified side> (HCC) Malignant neoplasm of prostate (HCC) Cyst of kidney Expected: 08/22/2025, Expires: 09/22/2025 Phosphorus Lab Routine Stage 3a chronic kidney disease (HCC) Total nephrectomy Renal cell carcinoma <Unspecified side> (HCC) Malignant neoplasm of prostate (HCC) Cyst of kidney Expected: 08/22/2025, Expires: 09/22/2025 PTH, Intact Lab Routine Stage 3a chronic kidney disease (HCC) Total nephrectomy Renal cell carcinoma <Unspecified side> (HCC) Malignant neoplasm of prostate (HCC) Cyst of kidney Expected: 08/22/2025, Expires: 09/22/2025 Vitamin D 25 Hydroxy Lab Routine Stage 3a chronic kidney disease (HCC) Total nephrectomy Renal cell carcinoma <Unspecified side> (HCC) Malignant neoplasm of prostate (HCC) Cyst of kidney Expected: 08/22/2025, Expires: 09/22/2025 CBC and Differential Lab Routine Stage 3a chronic kidney disease (HCC) Total nephrectomy Renal cell carcinoma <Unspecified side> (HCC) Malignant neoplasm of prostate (HCC) Cyst of kidney Expected: 08/22/2025, Expires: 09/22/2025 Protein, Total, Random Urine w/Creatinine (Protein/Creat Ratio) Lab Routine Stage 3a chronic kidney disease (HCC) Total nephrectomy Renal cell carcinoma <Unspecified side> (HCC) Malignant neoplasm of prostate (HCC) Cyst of kidney Expected: 08/22/2025, Expires: 09/22/2025 Urinalysis with microscopic Lab Routine Stage 3a chronic kidney disease (HCC) Total nephrectomy Renal cell carcinoma <Unspecified side> (HCC) Malignant neoplasm of prostate (HCC) Cyst of kidney Expected: 08/22/2025, Expires: 09/22/2025 documented as of this encounter Visit Diagnoses Diagnosis Stage 3a chronic kidney disease (HCC)- Primary Total nephrectomy Renal cell carcinoma <Unspecified side> (HCC) Malignant neoplasm of prostate (HCC) Malignant neoplasm of prostate Cyst of kidney documented in this encounter Care Teams Funeral Location Manager Relationship Specialty Start Date End Date Raiza Mancia NP-C [address], [address] [place] [address] PCP - General Nurse Practitioner 08/22/24 documented as of this encounter
--- OUTSIDE RECORDS SUMMARY | 2024-09-19 08:33 | XMS_ITS | Clinical Summary ---
Author Organization [facility] Address [address] [place] [address] Care Team Providers Care Manufacturing Business Analyst Name Role Phone Unavailable Primary Care Provider Unavailabl e Encounters Date Type Department Care Team Description 07/06/2024 Telephone Gastroenterology - [address] [place] [id number] Stephen Hernandez MD from Last 3 Months Social History Tobacco Use Types Packs/Day Years Used Date Smoking Tobacco: Never Assessed Sex and Gender Information Value Date Recorded Sex Assigned at Not on file Legal Sex Male 10:30 PM EST Gender Identity Not on file Sexual Orientation Not on file Plan of Treatment Health Maintenance Due Date Last Done Comments DTaP,Tdap,and Td Vaccines (1 - Tdap) 1969 Pneumococcal Vaccine: 50+ Ye ars (1 of 1 - PCV) 02/24/2000 Zoster Vaccines (1 of 2) 02/24/2000 COVID-19 Vaccine ( - 2023-2 5 season) 2024 Influenza Vaccine (#1) 2024 Abdominal Aortic Aneurysm (A AA) Screen 05/08/2024 Cholesterol Screening (Lipid Panel) 05/08/2024 Colorectal Cancer Screening: Colonoscopy 05/08/2024 Depression Screening 05/08/2024 Falls Risk Assessment 05/08/2024 Hepatitis C Screening 05/08/2024 Social Influencers of Health Screening 05/08/2024 RSV Immunization Patients 60 + Years Old (1 - 1-dose 75+ series) 2025 HIB Vaccines Aged Out No longer eligi ble based on patient's age to complete this topic HPV Vaccines Aged Out No longer eligi ble based on patient's age to complete this topic Hepatitis A Vaccines Aged Out No long er eligible based on patient's age to complete this topic Hepatitis B Vaccines Aged Out No long er eligible based on patient's age to complete this topic IPV Vaccines Aged Out No longer eligi ble based on patient's age to complete this topic MMR Vaccines Aged Out No longer eligi ble based on patient's age to complete this topic Meningococcal ACWY Vaccine Aged Out N o longer eligible based on patient's age to complete this topic Meningococcal B Vacine Aged Out No lo nger eligible based on patient's age to complete this topic RSV Immunization Patients Un jeremy 20 months Aged Out No longer eligible b ased on patient's age to complete this topic Varicella Vaccines Aged Out No longer eligible based on patient's age to complete this topic
--- OUTSIDE RECORDS SUMMARY | 2024-09-19 08:33 | XMS_ITS | Continuity of Care Document ---
Author Organization [facility], ANDREW Yang 2nd floor Address [address] [place] [address] Care Team Providers Care Railcar Brake Operator Name Role Phone ALEX HA Primary Care Provider [phone] Assessment No assessment recorded. Plan of Treatment Reminders Order Date Submit Date Provider Last Modified By Organization Details Last Modified Time Details Appointments INJECTION ONLY 15 2024 08:45A aJime Estrada PA-C Not available Not available Not available RECHECK 15 2024 02:45P Jaime WEAVER PA-C Not available Not available Not available Lab None recorded. Referral None recorded. Procedures None recorded. Surgeries None recorded. Imaging XR, hip + pelvis, unilatera l, 2 or 3 view - hip pain rm 215 2024 025 [email or web address] [facility] Office, [address], [facility] [address], [place], [address], 09/04/2024 10:30:26 Medication Orders Tylenol 8 Hour 650 mg tablet,ex tended release 2024 025 [id number], [address], [place], [place], [id number], 09/04/2024 10:16:02 Patient TargetsNo targets recorded. Patient InstructionsNo instructions recorded. Reason for Referral None Reported. Results Created Date Observation Date Name Description Value Unit Range Abnormal Flag Note LastModifiedBy Organization Detail LastModifiedTime 09/04/19 25 09/04/2024 XR, hip + pelvi s, unila teral , 2 or 3 view http:/ [email or web address] ?Encry pted=s hAaTro YD8dLq bEUv6g %2BXZw aYqtaq 0bqfl% 2Fg9IQ a4ajBk vP9nXo QUaueC m3YtLR FvZlgJ JJ8mAn HZtai3 2p7850 AC0Kqb H6CWae iKiQtr MwF INTERFACE [facility] Office [address], [place], [address], 09/04/2024 10:02:53 09/04/19 25 09/04/2024 XR, hip + pelvi s, unila teral , 2 or 3 view http:/ [email or web address] ?Encry pted=s hAaTro YD8dLq bEUv6g %2BXZw aYqtaq 0bqfl% 2Fg9IQ a4ajBk vP9nXo QUaueC m3YtLR FvZlgJ JJ8mAn HZtai3 9a1599 AC0Kqb H6CWae iKiQtr MwF INTERFACE [facility] Office [address], [place], [address], 09/04/2024 10:02:56 Result Notes None recorded. Problems Name Problem SNOMED Code Status Onset Date Resolution Date Notes Provider Name and Address Organization Details Recorded Time Osteoarthritis of knee 630694738 Active 2023 Lana Monet CNP [address], [place], [address], [facility] 4 09:40:21 Problem Notes None recorded. Procedures Surgical History Date Name Laterality Status Provider Name and Address Organization Details Recorded Time 4 Sports Knee 4&1 completed Lana Monet CNP [address], [place], [address], [facility] 07/31/2024 08:11:26 4 Sports Knee 4&1 completed Lana Shelbynga, ANESTHETIC ASSISTANT [address], [place], [address], [facility] 03/26/2024 08:41:04 4 Sports Knee 4&1 completed Lana Shelbyclaudette, ANESTHETIC ASSISTANT [address], [place], [address], [facility] 12/15/2023 09:40:09 2 Hip Surgery completed Shelley Yoandy [facility] 09/04/2024 09:41:02 2 Knee Surgery completed Shelley Pitt [facility] 09/04/2024 09:41:02 Knee Surgery completed Shelley Pitt [facility] 09/04/2024 09:41:02 Imaging Results None recorded. Procedure Notes None recorded. Medical Equipment None Reported. Allergies Allergen ID Allergen Name Allergen Category Reaction Reaction Severity Criticality Documentation Date Start Date Code Code System Note Provider Name and Address Organization Details Recorded Time 64331 penicilli n G benzathin e medicatio n Not available Not available Not available 10/03/20232011 7982 RxNorm Aller gyRea ction : 'Skin React ion'; Not Available [facility] 12:31:49 Medications Name Sig Start Date Stop [...] Updated DateTime 09/04/2024 175.26 cm 26.9 kg/m2 38896.81 g Shelley Pitt [facility] 09/04/2024 09:22:23 Social History Question Answer Notes LastModified by Organizat ion Details LastModified Time Tobacco Smoking Status Never Smoker Shelley hamm [facility] 09/04/2024 09:22:15 How Many Times Per Week [...] SNOMED-CT Code Diagnosis ICD10 Code Diagnosis Note [id number] CARON CRAIG 3rd [address] [place] [address] 08/15/2024 15:10:31 08/27/2024 09:36:09 Lumbar radiculopathy 245964279 M54.16 [id number] CARON Ramirez [address] [place] [address] 09/04/2024 09:11:57 09/04/2024 11:06:26 History of total replacement of left hip joint 1140834196 163160 Z96.642 Osteoarthr itis of left knee joint 9693105560 90437 M17.12 Health Concerns Section Related Observation LastModified by Organization Detai ls LastModified Time None Recorded Concern Status LastModified by Organization Details LastModified Time None Recorded Payers Encounter Date Sequence Insurance Name Policy Number Policy Fernandes Covered Member ID Fernandes Member ID Guarantor Name 09/04/2024 2 [facility] - PLAN 1 (MEDICARE SUPPLEMENT) [id number] Giuseppe Barrera [id number] Giuseppe Barrera 09/04/2024 1 MEDICARE B-[place]: [facility] [employer] Giuseppe Barrera [id number] Giuseppe Barrera Notes Date Note Type Note Provider Name and Address Organization Details Recorded Time 09/04/2024 text/html I am seeing the patient today under the supervision of Dr. Servin who was available but who did not see the patient. HPI:Patient is a 74-year-old male who presents today for recheck of his left hip. He has a history of left total hip replacement by Dr. Smith on 02/10/2012. About a month ago patient [...] concerns answered today. Ottoniel Estrada PA-C [address], [place], [address], [facility] 09/04/2024 11:06:23
== END 2024-09-19 09:26 | disposition home or self-care (01) ==
PROVIDERS: PCP Internal Medicine; Visit Provider Physician Assistant Medical
DX: G20.A1 Parkinson's disease without dyskinesia, without mention of fluctuations (principal)
CPT/HCPCS: 99214; G2211

== ENCOUNTER → 2024-09-19 08:29 | Outpatient (BNVA) | payer MEDICARE, OTHER, SELFPAY | PROVIDERS: PCP Internal Medicine; Visit Provider Psychiatry & Neurology Neurology | DX: G20.A1 Parkinson's disease without dyskinesia, without mention of fluctuations (principal); G47.19 Other hypersomnia | CPT/HCPCS: 99212 ==

== ENCOUNTER 2025-01-14 08:03 | Outpatient (AMB) | payer MEDICARE, OTHER, SELFPAY ==
[2025-01-14 08:06] VITALS: BP 122/80; PULSE 63; O2SAT 98; BMI 26.8
--- NOTE | 2025-01-14 08:06 | A.OFFVIS_ITS ---
Vital Signs 01/14/25 08:06 Height 5 ft 8 in Weight 176 lb 4 oz BMI 26.8 BP 122/80 Blood Pressure Location Rt brachial Position Sitting Pulse 63 Pulse Source Pulse Oximeter Pulse Oximetry (%) 98 Oxygen Delivery Method Room Air Intake Visit Reasons: 4 mo follow up Intake Note: Patient presents follow up Parkinson's. PT note in chart. HST booked 01/22. Patient would like to talk about Flaquito Aceves(hydrocephalus). Also, would like a new order for PT as feels like it helps. Allergies Penicillins Allergy (Severe, Verified 01/14/25 08:09) rash HPI Comments Details: 74 y/o r. handed male comes for follow up of Parkinsons disease. His Magali is here and helps with history. MRI 09/2023 reviewed with Patient today. He is concerned about Normal-pressure Hydrocephalus and water collection at the base of the brain, however pt. education is provided re: MRI findings: 1. No acute intracranial process. No evidence for infarction, hemorrhage, extra-axial fluid collection, space-occupying process, mass effect or hydrocephalus. HST is pending. He stopped sinemet 25/100 1 tab qd, as he did not notice any improvement. He denies falls. Tremors started 5 years ago and now more noticeable when stressed and or fatigued, with balance disturbances, he has completed 11 sessions of PT and can now climb and descend stairs. He is wearing easy slip on shoes now and has difficulty picking up his feet l>r, and turning can be difficult. PT is helping with his mobility and agility. He says his mornings are fairly good, less tremors however evenings tend to be worse around 7pm. He started using an martine to monitor his sleeping patterns. L. Knee pain d/t arthritis, hyaluronic acid injections, provide relief. He is using 20mg po prednisone currently and topically using Voltaran for muscle spasms or soreness. Speech is softer, with tremors in his voice, lips and heads, more pronounced and notice the need to project his voice. He denies difficulty with fine motor coordination, can screw nuts bolts, use utensils to eat easily, buttons his shirts. 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 He denies any memory issues and has no word finding difficulties. No parasomnias or hallucinations, sleeps 5-8 hours on a good day, snores loudly and feels fatigued. He is motivated, denies depression, anxiety, but mood fluctuates. He has difficulty getting up off the floor, but can do about 30 pushups, every other day at night. No difficulty with swallowing liquids and solids. He notices mild drooling and salivating. His Handwriting now has improved as he is working with a therapist, his letters are now larger to normal. He is independed in all ADLs, can bathe, shower and dress himself. Turning in bed is still difficult. Gait- normal with stooped posture and shuffling - favors L. side, however initiating turning to the side right especially is more challenging. Balance uses a canes only for long distances, turning can be difficulty and notices, his foot gets stuck, the l. foot will not initiate the movement. Posture is stooped. Diet is not good, eating less protein, he has constipation occasionally- uses fiber prn. No urinary issues- has prostrate issues, will get up several times for the bathroom at night. Denies dizziness, headaches, hallucinations and h/o head injury. He was exposed to kerosene per occupation as forestry pilot amongst other neuro-toxins. Patient Education: Re HST, vs martine monitoring. MRI findings do not support the diagnosis of Normal Pressure hydrocephalus. Joining the support group at the [facility] for Parkinsons and building a community of like minded resources to empower himself. PT orders are sent per request. CTscan for blood in phlegm in the AM, last week,, will f/u. [facility] Medical History Parkinson's disease without dyskinesia or fluctuating manifestations Arthritis Atypical chest pain Colonic polyp Renal cell carcinoma Surgical History H/O prostate biopsy History of nephrectomy, right History of hip replacement H/O arthroscopy Family History Father Lung neoplasm Mother No problems noted. Social History Alcohol intake: former Patient Tobacco Use Status: Never used Tobacco Physical Exam Vital Signs: Last Vital Signs Pulse 63 01/14/25 08:06 BP 122/80 01/14/25 08:06 Pulse Ox 98 01/14/25 08:06 Oxygen Delivery Method Room Air 01/14/25 08:06 BMI result Body Mass Index 26.8 Const General: healthy appearing, comfortable and no acute distress Nutritional Appearance: average body habitus Orientation/consciousness: patient oriented x3 HEENT Head: Yes normal to inspection Neck Other: mild antecollis and restricted range of motion Neuro Other: UPDRS - 3 Speech 0-normal 1-Slight loss of expression,diction or volume 2.Monotone,slurred but understandable,moderately impaired 3.Marked impairment,difficult to understand 4.Unintelligible Facial expression 0-normal 1-Minimal hypomimia, poker face 2-Slight but definite abnormal diminution of facial expression 3-Moderate hypomimia,lips parted some of the time 4-Masked or fixed facies withs evere loss of facialexpression, lips parted more than 1/4 inch Rest Tremors( head, Upper, lower ) 0- absent 1-Slight and infrequent 2-Mild in amplitude and persistent 3-Moderate in amplitude and present most of the time 4-Marked amplitude and present most of the time Action and Postural tremors 0-none 1-Slight with action 2-Moderate with action 3-Moderate with posture and action 4-Marked , interferes with feeding Rigidity 0-Absent 1-Slight or detectable only when activated by mirror movements 2-Mild to Moderate 3-Marked, but full ROM achieved 4-Severe, range of motion achieved with difficulty Finger Taps 0-normal 1-Mild slowing an tejal reductionin amplitude 2-Moderately impaired. Early fatiguing and occasional arrests in movement 3-Severely impaired. Frequent hesitation in initiating movements or arrests in ongoing movement. 4-can barely perform the task Hand movements 0-normal 1-mild slowing and or reduction in amplitude 2-Moderately impaired.Definite and early fatiguing, may have occasional arrests in movement. 3-Severely impaired.Frequent hesitation in initiating or arrests in movement. 4-can barely perform the task Rapid Alternating Movements of Hands 0-normal 1-Mild slowing and or reduction in amplitude 2-Moderately impaired.Definite and early fatiguing. 2-Moderately impaired. Definite and early fatiguing. May have occasional arrests in movement. 3-severely impaired.Frequent hesitation in initiating movements or arrests in ongoing movement. 4-can barely perform the task Leg agility 0-normal 1-mild slowing and reduction in amplitude 2-moderately impaired.Definite and early fatiguing , may have occasional arrests in movement. 3-severely impaired.Frequent hesitation in initiating movements or arrests in ongoing movement. 4-can barely perform the task Arising from a chair 0-Normal 1-Slow or may need more than 1 attempt 2-Pushes self up from arms of seat 3-Tends to fall back and may have to try more than one time,but can get up without difficulty 4-Unable to stand without help Postural stability 0-normal 1-retropulsion but recovers unaided 2-absence of postural response,will fall if not caught by the examiner 3-very unstable,tends to lose balance spontaneously 4-unable to stand without assistance Body bradykinesia and hypokinesia 0-none 1-minimal slowness,giving movement a deliberate character,could be normal for some persons.Possible reduced amplitude 2-Mild degree of slowness and poverty of movement or some reduced amplitude 3-moderate slowness,poverty or small amplitude of movement 4-marked slowness, poverty or small amplitude of movement. General: patient oriented x3 Cranial nerves: Yes CN's II-XII intact bilaterally, Yes Bilaterally intact EOM present, Yes Normal facial strength present and Yes Midline tongue present Cognition (Neuro): normal cognition Motor exam (neuro): 5/5 motor strength present throughout Coordination: [id number] test normal (tremors and overshoots) Psych Appearance: grossly normal Attitude: cooperative Results Reviewed Results Reviewed: MR venogram reviewed MR/MR venography head wo/w con IMPRESSION: No evidence of cerebral venous sinus thrombosis. MR/MR head/brain wo con MRI Head IMPRESSION: 1. No acute intracranial process. No evidence for infarction, hemorrhage, extra-axial fluid collection, space-occupying process, mass effect or hydrocephalus. 2. 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 3. Probable slow flow within the left transverse and sigmoid sinuses. If clinically warranted, this can be further assessed with contrast-enhanced MR venography. CT scan pending [facility] Assessment & Plan Assessment & Plan (1) Parkinson's disease without dyskinesia or fluctuating manifestations: Code(s): G20.A1 - Parkinson's disease without dyskinesia, without mention of fluctuations Category: Medical (2) Coarse tremors: Code(s): G25.2 - Other specified forms of tremor Category: Medical (3) Sleep disturbances: Comment: HST Code(s): G47.9 - Sleep disorder, unspecified Category: Medical Plan PT for Balance and Gait Instability, difficulty initiation of turning to the r/l side. HST Snoring r/o jorge luis. Will f/u after his CT scan. 4months with Dr. Cheng and 6 months with me. Patient Education provided today: Tremors declines medication, continues to take Prednisone, discussed, sinemet, Rytary, ONpago apomorphine and Duopa? Pumps vs oral thearpy. Orders: Orders PT Evaluation and Treatment 01/14/25 G20.A1 - Parkinson's disease without dyskinesia, without mention of fluctuations RT home sleep study 01/14/25 G47.19 - Other hypersomnia Patient Instructions: Sleep Hygiene provided: set a scheduled bedtime and wake time to help regulate the circadian rhythm and balance the release of pituitary hormones. Sleep in a dark room, temperatures below 68 degrees, and no devices n bed. Limit caffeinated products 6 hours prior to bed, and limit fluids 2-4 hours prior to bed. Gentle night yoga, diffusing essential oils, and playing soft music can be relaxing. Patient Education: Re HST, vs martine monitoring, cardiovascular risks due to jorge luis. PETScan if patient is concerned re: Neuro-hydrocephalus. Joining the support group at the [facility] for Parkinsons and building a community of like minded resources to empower himself. PT orders are sent per request. Apply Magnilife topically over sore muscles. CTscan for blood in phlegm in the AM, last week,, will f/u. Coding Level of Care Code Est Pt Level 4 (95029) Complex EM visit Add On G2211 Diagnoses Parkinson's disease without dyskinesia or fluctuating manifestations G20.A1 Coarse tremors G25.2 Sleep disturbances G47.9 Time Spent (min) 40 Comment Baseline Evaluation
--- OUTSIDE RECORDS SUMMARY | 2025-01-14 08:10 | XMS_ITS | Clinical Summary ---
Author Organization [facility] Address [address] [phone] Phone Care Team Providers Care Client Experience Consultant Name Role Phone [place]Raiza fontaine [employer] Primary Care Provider + Allergies Active Allergy [...] time each day if needed 4 Active Active Problems Problem Noted Date Diagnosed Date Malignant neoplasm of prostate 12/23/2022 Total nephrectomy 09/21/2021 Renal cell carcinoma 09/21/2021 Cyst of kidney 09/21/2021 Stage 3a chronic kidney disease 09/21/2021 Immunizations Immunization Administration Dates Next Due Influenza Split High [...] Office Visit [facility] [address] [phone] Javad Ahn MD [address] [place] [phone] Health Maintenance Due Date Last Done Comments Pneumococcal Vaccine: 50+ Ye ars (1 of 2 - PCV) 1969 Colorectal Cancer Screening: Annual FOBT 1999 Colorectal Cancer Screening: Colonoscopy 1999 Colorectal Cancer Screening: Sigmoidoscopy 1999 Influenza Vaccine (Season Ended) 2025 05/01/20 19 Hepatitis B Vaccine Aged Out No longe r eligible based on patient's age to complete this topic Insurance Medicare [facility] Medicare [facility] Care Teams Client Experience Consultant Relationship Specialty Start Date End Date Raiza Mancia NP-C [address], [address] [place] [address] PCP - General Nurse Practitioner 08/22/24
== END 2025-01-14 08:56 | disposition home or self-care (01) ==
LOC: HO.HSMS 08:04
PROVIDERS: PCP Internal Medicine; Visit Provider Physician Assistant Medical
DX: G20.A1 Parkinson's disease without dyskinesia, without mention of fluctuations (principal); G25.2 Other specified forms of tremor; G47.9 Sleep disorder, unspecified
CPT/HCPCS: 99214; G2211

== ENCOUNTER → 2025-01-14 08:03 | Outpatient (BNVA) | payer MEDICARE, OTHER, SELFPAY | PROVIDERS: PCP Internal Medicine; Visit Provider Physician Assistant Medical | DX: G20.A1 Parkinson's disease without dyskinesia, without mention of fluctuations (principal); G25.2 Other specified forms of tremor; G47.9 Sleep disorder, unspecified | CPT/HCPCS: 99212 ==

== ENCOUNTER 2025-03-14 11:35 | Outpatient (AMB) | payer MEDICARE, OTHER, SELFPAY ==
--- NOTE | 2025-03-14 11:32 | A.OFFVIS_ITS ---
Intake Visit Reasons: MMSE Correspondence Renew Clerk Required: No Accompanied by: Self / Same As Patient Allergies Penicillins Allergy (Severe, Verified 03/14/25 11:33) rash HPI Comments Details: 75 y/o r. handed male calls for follow up of Parkinsons disease.He denies memory issues He declines sleep study He started PT and is helping with gait No falls. He uses a cane as needed. Mood- stable He takes sinemet 25/100 1 tab qd MRI 09/2023 reviewed with Patient today. He is concerned about Normal-pressure Hydrocephalus and water collection at the base of the brain, however pt. education is provided re: MRI findings: 1. No acute intracranial process. No evidence for infarction, hemorrhage, extra-axial fluid collection, space-occupying process, mass effect or hydrocephalus. Last visit history-. Tremors started 5 years ago and now more noticeable when stressed and or fatigued, with balance disturbances, he has completed 11 sessions of PT and can now climb and descend stairs. He is wearing easy slip on shoes now and has difficulty picking up his feet l>r, and turning can be difficult. PT is helping with his mobility and agility. He says his mornings are fairly good, less tremors however evenings tend to be worse around 7pm. He started using an martine to monitor his sleeping patterns. L. Knee pain d/t arthritis, hyaluronic acid injections, provide relief. He is using 20mg po prednisone currently and topically using Voltaran for muscle spasms or soreness. Speech is softer, with tremors in his voice, lips and heads, more pronounced and notice the need to project his voice. He denies difficulty with fine motor coordination, can screw nuts bolts, use utensils to eat easily, buttons his shirts. 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 He denies any memory issues and has no word finding difficulties. No parasomnias or hallucinations, sleeps 5-8 hours on a good day, snores loudly and feels fatigued. He is motivated, denies depression, anxiety, but mood fluctuates. He has difficulty getting up off the floor, but can do about 30 pushups, every other day at night. No difficulty with swallowing liquids and solids. He notices mild drooling and salivating. His Handwriting now has improved as he is working with a therapist, his letters are now larger to normal. He is independent in all ADLs, can bathe, shower and dress himself. Turning in bed is still difficult. Gait- normal with stooped posture and shuffling - favors L. side, however initiating turning to the side right especially is more challenging. Balance uses a canes only for long distances, turning can be difficulty and notices, his foot gets stuck, the l. foot will not initiate the movement. Posture is stooped. Diet is not good, eating less protein, he has constipation occasionally- uses fiber prn. No urinary issues- has prostrate issues, will get up several times for the bathroom at night. Denies dizziness, headaches, hallucinations and h/o head injury. 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 [facility] Medical History Parkinson's disease without dyskinesia or fluctuating manifestations Arthritis Atypical chest pain Colonic polyp Renal cell carcinoma Surgical History H/O prostate biopsy History of nephrectomy, right History of hip replacement H/O arthroscopy Family History Father Lung neoplasm Mother No problems noted. Social History Alcohol intake: former Patient Tobacco Use Status: Never used Tobacco Physical Exam Const Other: speech normal Mood stable General: cooperative Orientation/consciousness: patient oriented x3 Neuro General: patient oriented x3 Telehealth Telehealth Telehealth Platform: Telephone Location of provider rendering services: practice address Location of patient: address on file Patient Identification confirmed using: Name, : Yes Telehealth method: voice only Patient verbally consented to treatment: Yes Patient verbally consented to billing insurance company: Yes Patient informed of any privacy concerns related to visit: Yes Assessment & Plan Assessment & Plan (1) Parkinson's disease without dyskinesia or fluctuating manifestations: Code(s): G20.A1 - Parkinson's disease without dyskinesia, without mention of fluctuations Category: Medical (2) Coarse tremors: Code(s): G25.2 - Other specified forms of tremor Category: Medical (3) Sleep disturbances: Comment: HST Code(s): G47.9 - Sleep disorder, unspecified Category: Medical Plan PT for Balance and Gait Instability, difficulty initiation of turning to the r/l side.- he is doing well. HST Snoring r/o jorge luis. - declines sleep study sinemet 25/100 qd Cancel PET Tremors declines medication. Coding Level of Care Code Tele Est Pt Level 4 (85462) Diagnoses Parkinson's disease without dyskinesia or fluctuating manifestations G20.A1 Coarse tremors G25.2 Sleep disturbances G47.9
--- OUTSIDE RECORDS SUMMARY | 2025-03-14 12:41 | XMS_ITS | Clinical Summary ---
Author Organization [facility] Address [address] [phone] Phone Care Team Providers Care Bone Puller Name Role Phone [place] fontaine [employer] Primary Care Provider + Allergies Active Allergy [...] Office Visit [facility] [address] [phone] Javad Ahn MD [address] [place] [phone] Health Maintenance Due Date Last Done Comments Pneumococcal Vaccine: 50+ Ye ars (1 of 2 - PCV) 1969 Colorectal Cancer Screening: Annual FOBT 1999 Colorectal Cancer Screening: Colonoscopy 1999 Colorectal Cancer Screening: Sigmoidoscopy 1999 Influenza Vaccine (#1) 2025 05/01/2019 Hepatitis B Vaccine Aged Out No longe r eligible based on patient's age to complete this topic Insurance Medicare [facility] Medicare [facility] Care Teams Bone Puller Relationship Specialty Start Date End Date Raiza Mancia NP-C [address], [address] [place] [address] PCP - General Nurse Practitioner 08/22/24
--- OUTSIDE RECORDS SUMMARY | 2025-03-14 12:41 | XMS_ITS | Clinical Summary ---
Author Organization [facility] Address [address] [place] [phone] Phone Care Team Providers Care Cardiology Nurse Practitioner Name Role Phone Raiza Mancia NP Primary Care Provid er Lucia Devine MD Unavailable [phone] Allergies No known active allergies Medications No known medications Active Problems Problem Noted Date Diagnosed Date History of kidney cancer 12/23/2022 Malignant neoplasm of prostate 12/23/2022 Cancer Staging:Clinical: cT1c, cN0, cM0, Grade Group: 1 - Signed by Jaime Gil MD, PhD on 12/23/2022 Stage 3a chronic kidney disease 09/21/2021 12/15/2022 Resolved Problems Problem Noted Date Diagnosed Date Resolved Date 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 No 09/20/2023 Education Answer Date Recorded Are you interested in more education? Not on gema e 11/25/2022 Are you concerned about learning? Not on file 11/25/2022 No 11/25/2022 No 11/25/2022 Food Answer Date Recorded Within the past 6 months we worried whether our food would run out before we got money to buy more. Never True 09/20/2023 Within the past 6 months the food we bought just didn't last and we didn't have enough money to get more. Never True Residential Stability Answer Date Recor ded What is your housing situation today? I have corrine hoyt 09/20/2023 How many times have you move d in the past 12 months? Zero (I did not move) 09/20/2023 Paying for Meds Answer Date Recorded Do you have trouble paying for medicines? No 09/20/2023 Paying Utility Bills Answer Date Record ed Do you have trouble paying your heating or elect ricity bill? No 09/20/2023 Transportation Answer Date Recorded Has the lack of transportati on kept you from medical appointments or from getting medications? No 09/20/2023 Digital Access Answer Date Recorded No 12/22/2022 No 12/22/2022 Reliable internet access at home? Not on file 12/22/2022 Device with a working camera? Not on file Sex and Gender Information Value Date Recorded Sex Assigned at Male 11/19/2022 3:09 PM EDT Legal Sex Male 3:06 PM EDT Gender Identity Male 11/19/2022 3:09 PM EDT Sexual Orientation Straight 11/19/2022 3: 09 PM EDT Last Filed Vital Signs Vital Sign Reading Time Taken Comments Blood Pressure 145/73 09/20/2023 1:56 PM EST Pulse 75 09/20/2023 1:56 PM EST Temperature 36.6 C (97.8 F) 09/20/2023 1:56 PM EST Respiratory Rate 18 09/20/2023 1:54 PM EST Oxygen Saturation 98% 09/20/2023 1:56 PM EST Inhaled Oxygen Concentration - - Weight 82.1 kg (181 lb) 09/20/2023 1:54 PM EST Height 169.4 cm (5' 6.69 ) 09/20/2023 1:54 PM ES T Body Mass Index 28.61 09/20/2023 1:54 PM EST Plan of Treatment Upcoming Encounters Date Type Department Care Team (Late st Contact Info) Description 06/11/2025 8:00 AM EST Office Visit [facility] Department of Neurology [address] [place] [address] Monica Brice PA-C [address] [place] [address] [email or web address] Health Maintenance Due Date Last Done Comments Adult Td,Tdap Booster 1950 LIPID PANEL 1950 DEPRESSION SCREENING 1962 SMOKING Hx and SMOKELESS TOB ACCO SCREENING 1963 HEPATITIS C SCREENING 02/24/1968 PNEUMOCOCCAL VACCINES (50+ y ears) (1 of 2 - PCV) 1969 ZOSTER VACCINES (1 of 2) 1969 COLOGUARD 1995 COLONOSCOPY 1995 COLORECTAL CANCER SCREENING 1995 FIT TEST 1995 FOBT 1995 SIGMOIDOSCOPY 1995 VIRTUAL COLONOSCOPY 1995 COVID-19 VACCINE ( - 2023-2 5 season) 2024 RSV VACCINE (1 - 1-dose 75+ series) 2025 HEPATITIS A VACCINES Aged Out No long er eligible based on patient's age to complete this topic HIB VACCINES Aged Out No longer eligi ble based on patient's age to complete this topic MENINGOCOCCAL VACCINES (ACWY) Aged Out No longer eligible based on patient's age to complete this topic MENINGOCOCCAL VACCINES (B) Aged Out N o longer eligible based on patient's age to complete this topic Medical Devices Not on file Insurance MED[place] PART A & [place] [id number] [facility] MEDICARE SUPPLEMENT GENERIC COMMERCIAL MEDICARE PART A & B [facility] MEDICARE SUPPLEMENT GENERIC COMMERCIAL MEDICARE PART A & B [facility] MEDICARE SUPPLEMENT GENERIC COMMERCIAL MEDICARE PART A & B [facility] MEDICARE SUPPLEMENT GENERIC COMMERCIAL MEDICARE PART A & [facility] [place] [id number] MEDICARE PART A & B [facility] MEDICARE SUPPLEMENT GENERIC COMMERCIAL Care Teams Cardiology Nurse Practitioner Relationship Specialty Start Date End Date Raiza Mancia NP [address] [place] [phone] PCP - General Nurse Practitioner 11/23/22 Lucia Devine MD [address] [place] [phone] [email or web address] Oncology 08/03/23 Additional Source Comments The information contained in this document represents components of the legal health record. It is not the complete legal health record.[facility]
--- OUTSIDE RECORDS SUMMARY | 2025-03-14 12:41 | XMS_ITS | Clinical Summary ---
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 Name Role Phone Unavailable Primary Care Provider Unavailabl e Social History Tobacco Use Types Packs/Day Years Used Date Smoking Tobacco: Never Assessed Sex and Gender Information Value Date Recorded Sex Assigned at Not on file Legal Sex Male 10:30 PM EST Gender Identity Not on file Sexual Orientation Not on file Plan of Treatment Health Maintenance Due Date Last Done Comments COVID-19 Vaccine (#1) 1955 DTaP,Tdap,and Td Vaccines (1 - Tdap) 1969 Pneumococcal Vaccine: 50+ Ye ars (1 of 2 - PCV) 1969 Zoster Vaccines (1 of 2) 1969 Abdominal Aortic Aneurysm (A AA) Screen 05/08/2024 Cholesterol Screening (Lipid Panel) 05/08/2024 Colorectal Cancer Screening: Colonoscopy 05/08/2024 Falls Risk Assessment 05/08/2024 Hepatitis C Screening 05/08/2024 Social Influencers of Health Screening 05/08/2024 Depression Screening 08/01/2024 RSV Immunization Adult Patie nts (1 - 1-dose 75+ series) 2025 Influenza Vaccine (#1) 2025 05/01/2019 HIB Vaccines Aged Out No longer eligi [...] age to complete this topic Meningococcal B Vaccine Aged Out No l onger eligible based on patient's age to complete this topic RSV Immunization Patients Un jeremy 20 months Aged Out No longer eligible b ased on patient's age to complete this topic Varicella Vaccines Aged Out No longer eligible based on patient's age to complete this topic
== END 2025-03-14 12:02 | disposition home or self-care (01) ==
LOC: HO.HSMS 11:36
PROVIDERS: PCP Internal Medicine; Visit Provider Psychiatry & Neurology Neurology
DX: G20.A1 Parkinson's disease without dyskinesia, without mention of fluctuations (principal); G25.2 Other specified forms of tremor; G47.9 Sleep disorder, unspecified
CPT/HCPCS: 99214

== ENCOUNTER 2025-07-15 10:45 | Outpatient (AMB) | payer MEDICARE, OTHER, SELFPAY ==
[2025-07-15 10:50] VITALS: BP 136/82; PULSE 75; O2SAT 98; BMI 28.3
--- NOTE | 2025-07-15 10:50 | MHC.OFFVIS ---
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 handed male calls for follow up of Parkinsons disease.He denies memory issues He tried sinemet 25/100 once a day for days - he felt his tremors were worse and he was fatigued and had muscle pain. He declines sleep study He started PT and is helping with gait No falls. He uses a cane as needed. Mood- stable He talks if Dilantin will help him. PET scan throat - cancer . MRI 09/2023 reviewed with Patient today. He is concerned about Normal-pressure Hydrocephalus and water collection at the base of the brain, however pt. education is provided re: MRI findings: 1. No acute intracranial process. No evidence for infarction, hemorrhage, extra-axial fluid collection, space-occupying process, mass effect or hydrocephalus. Last visit history-. Tremors started 5 years ago and now more noticeable when stressed and or fatigued, with balance disturbances, he has completed 11 sessions of PT and can now climb and descend stairs. He is wearing easy slip on shoes now and has difficulty picking up his feet l>r, and turning can be difficult. PT is helping with his mobility and agility. He says his mornings are fairly good, less tremors however evenings tend to be worse around 7pm. He started using an martine to monitor his sleeping patterns. L. Knee pain d/t arthritis, hyaluronic acid injections, provide relief. He is using 20mg po prednisone currently and topically using Voltaran for muscle spasms or soreness. Speech is softer, with tremors in his voice, lips and heads, more pronounced and notice the need to project his voice. He denies difficulty with fine motor coordination, can screw nuts bolts, use utensils to eat easily, buttons his shirts. 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 He denies any memory issues and has no word finding difficulties. No parasomnias or hallucinations, sleeps 5-8 hours on a good day, snores loudly and feels fatigued. He is motivated, denies depression, anxiety, but mood fluctuates. He has difficulty getting up off the floor, but can do about 30 pushups, every other day at night. No difficulty with swallowing liquids and solids. He notices mild drooling and salivating. His Handwriting now has improved as he is working with a therapist, his letters are now larger to normal. He is independent in all ADLs, can bathe, shower and dress himself. Turning in bed is still difficult. Gait- normal with stooped posture and shuffling - favors L. side, however initiating turning to the side right especially is more challenging. Balance uses a canes only for long distances, turning can be difficulty and notices, his foot gets stuck, the l. foot will not initiate the movement. Posture is stooped. Diet is not good, eating less protein, he has constipation occasionally- uses fiber prn. No urinary issues- has prostrate issues, will get up several times for the bathroom at night. Denies dizziness, headaches, hallucinations and h/o head injury. 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 FOR[facility]LY [facility], [facility] Medical History Parkinson's disease without dyskinesia or fluctuating manifestations Arthritis Atypical chest pain Colonic polyp Renal cell carcinoma Surgical History H/O prostate biopsy History of nephrectomy, right History of hip replacement H/O arthroscopy Family History Father Lung neoplasm Mother No problems noted. Social History Alcohol intake: former Patient Tobacco Use Status: Never used Tobacco Physical Exam Vital Signs: Last Vital Signs Pulse 75 07/15/25 10:50 BP 136/82 07/15/25 10:50 Pulse Ox 98 07/15/25 10:50 Oxygen Delivery Method Room Air 07/15/25 10:50 BMI result Body Mass Index 28.3 Const General: healthy appearing, comfortable and no acute distress Nutritional Appearance: average body habitus Orientation/consciousness: patient oriented x3 HEENT Head: Yes normal to inspection Neck Other: mild antecollis and restricted range of motion Neuro Other: Decreased facial expressiona dn blink Layne rest tremors L>R FFM decreased and foot taps decreased layne L>R Stooped, slow small steps. General: patient oriented x3 Cranial nerves: Yes CN's II-XII intact bilaterally, Yes Bilaterally intact EOM present, Yes Normal facial strength present and Yes Midline tongue present Cognition (Neuro): normal cognition Motor exam (neuro): 5/5 motor strength present throughout Coordination: [id number] test normal Psych Appearance: grossly normal Assessment & Plan Assessment & Plan (1) Parkinson's disease without dyskinesia or fluctuating manifestations: Code(s): G20.A1 - Parkinson's disease without dyskinesia, without mention of fluctuations Category: Medical (2) Coarse tremors: Code(s): G25.2 - Other specified forms of tremor Category: Medical (3) Sleep disturbances: Comment: HST Code(s): G47.9 - Sleep disorder, unspecified Category: Medical Plan PT for Balance and Gait Instability, difficulty initiation of turning to the r/l side.- he is doing well. Trial patient on Neupro patch 1mg qd F/u ENT for throat CA Sae scan . Orders: Orders DaTscan Today G20.A1 - Parkinson's disease without dyskinesia, without mention of fluctuations Medications: New rotigotine (Neupro) 1 mg transdermal DAILY 30 ea 1RF Coding Level of Care Code Est Pt Level 4 (40780) Add On Problem Visit Only Diagnoses Parkinson's disease without dyskinesia or fluctuating manifestations G20.A1 Coarse tremors G25.2 Sleep disturbances G47.9
--- OUTSIDE RECORDS SUMMARY | 2025-07-15 14:54 | XMS_ITS | Clinical Summary ---
Author Organization [facility] [place] [address] Care Team Providers Care Corporate Training Manager Name Role Phone Unavailable Primary Care Provider Unavailabl e Encounters Date Type Department Care Team Description 05/16/2025 1:36 PM EDT - 05/16/2025 11:59 PM EDT Hospital Encounter [facility] PET Scan [address] [place] [address] Prostate cancer (CMS/HCC V24, CMS/HCC V28) Discharge Disposition: Home or Self Care from Last 3 Months Social History Tobacco Use Types Packs/Day Years Used Date Smoking Tobacco: Never Assessed Sex and Gender Information Value Date Recorded Sex Assigned at Not on file Legal Sex Male 10:30 PM EST Gender Identity Not on file Sexual Orientation Not on file Last Filed Vital Signs Vital Sign Reading Time Taken Comments Blood Pressure - - Pulse - - Temperature - - Respiratory Rate - - Oxygen Saturation - - Inhaled Oxygen Concentration - - Weight 83.9 kg (185 lb) 05/16/2025 2:27 PM EDT Height 170.2 cm (5' 7 ) 05/16/2025 2:27 PM EDT Body Mass Index 28.98 05/16/2025 2:27 PM EDT Plan of Treatment Health Maintenance Due Date Last Done Comments Colorectal Cancer Screening: Colonoscopy 1950 COVID-19 Vaccine (#1) 1955 DTaP,Tdap,and Td Vaccines (1 - Tdap) 1969 Pneumococcal Vaccine: 50+ Ye ars (1 of 2 - PCV) 1969 Zoster Vaccines (1 of 2) 1969 Cholesterol Screening (Lipid Panel) 05/08/2024 Falls Risk Assessment 05/08/2024 Hepatitis C Screening 05/08/2024 Medicare Annual Wellness Visit 05/08/2024 Social Influencers of Health Screening 05/08/2024 [...] Procedure Name Priority Date/Time Associated Diagnosis Comments PET CT SKULL TO MID THIGH INITIAL Routine 05/16/2025 3:38 PM EDT Prostate cancer ([facility] V24, [facility] V28) from Last 3 Months Results * PET CT Skull to Mid Thigh Initial (05/16/2025 3:38 PM EDT) Anatomical Region Laterality Modality Body Radiographic Gem ging 05/28/2025 5:11 PM EDT Impressions 05/29/2025 1:23 PM EDT Metabolically active right oropharyngeal mass with associated right-sided level 2 cervical adenopathy. 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 Consider ENT consultation as well as ultrasound-guided biopsy of cervical node. -------- FINAL REPORT -------- Dictated By: Armida, Parshant Dictated Date: 05/28/2025 17:11 ET Assigned Physician: Corazon Huffman Reviewed and Electronically Signed By: Corazon Huffman Signed Date: 05/29/2025 13:23 ET Workstation ID: [id number] Transcribed By: Self Edit Transcribed Date: 05/28/2025 17:29 ET Narrative 05/29/2025 1:23 PM EDT INDICATION: Neck mass/cervical lymphadenopathy, initial treatment strategy Prior relevant studies: Outside CT scan of the chest from January 23, 2025 reviewed. Radiopharmaceutical: 10.3 mCi of F-18 FDG IV. Blood glucose: 95 mg/dl. PROCEDURE: Routine body FDG PET-CT imaging was performed from the skull base to the mid thighs and reconstructed in axial, coronal, and sagittal planes at the computer workstation with fused data from both the PET imaging study and attenuation correction CT. The CT portion of the examination was done strictly for attenuation correction and is not a true diagnostic CT examination. CTDI: 9.09 mGy FINDINGS: HEAD AND NECK: FDG avid mass noted within the right tongue base with SUV max of 13.4. Associated right-sided level 2 FDG avid cervical lymphadenopathy with SUV max of 9.4. Left-sided level 2 nonenlarged nodes with SUV max of 2.9. THORAX: No abnormal FDG activity. ABDOMEN/PELVIS: Status post right nephrectomy. Focal activity in the left side of the pelvis anteriorly extending towards inguinal region with SUV max of 4.6 likely related to prior left inguinal hernia repair. MUSCULOSKELETAL: Mild sacral activity likely related to degenerative/reactive changes. Procedure Note Corazon Huffman MD - 05/29/2025 INDICATION: Neck mass/cervical lymphadenopathy, initial treatmentstrategy Prior relevant studies: Outside CT scan of the chest from January 23, 2025reviewed. Radiopharmaceutical: 10.3 mCi of F-18 FDG IV. Blood glucose: 95 mg/dl. PROCEDURE: Routine body FDG PET-CT imaging was performed from the skullbase to the mid thighs and reconstructed in axial, coronal, and sagittalplanes at the computer workstation with fused data from both the PETimaging study and attenuation correction CT. The CT portion of theexamination was done strictly for attenuation correction and is not a truediagnostic CT examination. CTDI: 9.09 mGy FINDINGS: HEAD AND NECK: FDG avid mass noted within the right tongue base with SUVmax of 13.4. Associated right-sided level 2 FDG avid cervical lymphadenopathy with SUVmax of 9.4. Left-sided level 2 nonenlarged nodes with SUV max of 2.9. THORAX: No abnormal FDG activity. ABDOMEN/PELVIS: Status post right nephrectomy. Focal activity in the left side of the pelvis anteriorly extending towardsinguinal region with SUV max of 4.6 likely related to prior left inguinalhernia repair. MUSCULOSKELETAL: Mild sacral activity likely related todegenerative/reactive changes. IMPRESSION: Metabolically active right oropharyngeal mass with associated right-sidedlevel 2 cervical adenopathy. Findings concerning for primary head and neckcarcinoma. Consider ENT consultation as well as ultrasound-guided biopsyof cervical node. -------- FINAL REPORT -------- Dictated By: Corazon Huffman Dictated Date: 05/28/2025 17:11 ET Assigned Physician: Corazon Huffman Reviewed and Electronically Signed By: Corazon Huffman Signed Date: 05/29/2025 13:23 ET Workstation ID: [id number] Transcribed By: Self Edit Transcribed Date: 05/28/2025 17:29 ET Shelley Hernandez [facility] PROCEDURES Final Result from Last 3 Months Insurance MEDICARE [facility]
--- OUTSIDE RECORDS SUMMARY | 2025-07-15 14:55 | XMS_ITS | Clinical Summary ---
Author Organization Formerly [facility] Address [address] [place] [address] Phone Care Team Providers Care Panel Edge Painter Name Role Phone Raiza Mancia NP Primary Care Provid er Lucia Devine MD Unavailable [phone] Allergies Active Allergy Reactions Criticality Noted Date Comments Penicillins Other (See Comments) 08/01/1974 Medications carbidopa-levodopa (SINEMET) 25-100 mg per tablet 06/01/2023 Activ e acetaminophen (TYLENOL 8 HOUR) 650 MG CR tablet 10/17/2023 Ac tive Active Problems Problem Noted Date Diagnosed Date History of kidney cancer 12/23/2022 Malignant neoplasm of prostate 12/23/2022 Cancer Staging:Clinical: cT1c, cN0, cM0, Grade Group: 1 - Signed by Jaime Gil MD, PhD on 12/23/2022 Stage 3a chronic kidney disease 09/21/2021 12/15/2022 Resolved Problems Problem Noted Date Diagnosed Date Resolved Date 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 12/23/2022 Encounters Date Type Department Care Team Description 06/19/2025 Telephone [facility], Department of Neurology [address] [place] [address] Monica Brice PA-C Call back request 06/11/2025 8:00 AM EST Office Visit [facility] Department of Neurology [address] [place] [address] Monica Brice PA-C Parkinson's disease without dyskinesia or fluctuating manifestations (Primary Dx) 06/11/2025 Ancillary Orders [facility] Radiology [address] [place] [address] Monica Brice PA-C 06/11/2025 Ancillary Orders [facility] [address] [place] [address] Monica Brice PA-C from Last 3 Months Social History Tobacco Use Types Packs/Day Years Used Date Smoking Tobacco: Unknown Child or Family Care Answer Date Record [...] with a working camera? Not on file Intimate Partner Violence Answer Date R ecorded Are you denied basic needs s uch as food, clothing, or medical care? No 06/11/2025 In the past 12 months have y ou been in a relationship with a person who hurts, threatens, or tries to control you? No 06/11/2025 Are you denied basic needs s uch as food, clothing, or medical care? No 06/11/2025 In the past 12 months have y ou been in a relationship with a person who hurts, threatens, or tries to control you? No 06/11/2025 Sex and Gender Information Value Date Recorded Sex Assigned at Male 11/19/2022 3:09 PM EDT Legal Sex Male 3:06 PM EDT Gender Identity Male 11/19/2022 3:09 PM EDT Sexual Orientation Straight 11/19/2022 3: 09 PM EDT Last Filed Vital Signs Vital Sign Reading Time Taken Comments Blood Pressure 132/80 06/11/2025 7:39 AM EST Pulse 74 06/11/2025 7:39 AM EST Temperature 36.8 C (98.3 F) 06/11/2025 7:39 AM EST Respiratory Rate 18 09/20/2023 1:54 PM EST Oxygen Saturation 98% 06/11/2025 7:39 AM EST Inhaled Oxygen Concentration - - Weight 82.6 kg (182 lb 1.6 oz) 06/11/2025 7:39 A M EST Height 169.4 cm (5' 6.69 ) 09/20/2023 1:54 PM ES T Body Mass Index 28.78 09/20/2023 1:54 PM EST Plan of Treatment Upcoming Encounters Date Type Department Care Team (Late st Contact Info) Description 07/22/2025 8:00 AM EST Appointment [facility] [address] [place] [address] Monica Brice PA-C [address] [place] [address] 07/22/2025 12:00 PM EST Appointment [facility] [address] [place] [address] Monica Brice PA-C [address] [place] [address] [email or web address] 10/08/2025 8:00 AM EDT Telemedicine [facility] Department of Neurology [address]th [address], [address] [place] [address] Thania Waite MD, MPH [address] [place] [address] [email or web address] Maintenance Due Date Last Done Comments Adult Td,Tdap Booster 1950 LIPID PANEL 1950 SMOKING Hx and SMOKELESS TOB ACCO SCREENING 1963 HEPATITIS C SCREENING 02/24/1968 PNEUMOCOCCAL VACCINES (50+ y ears) (1 of 2 - PCV) 1969 ZOSTER VACCINES (1 of 2) 1969 COLOGUARD 1995 COLONOSCOPY 1995 COLORECTAL CANCER SCREENING 1995 FIT TEST 1995 FOBT 1995 SIGMOIDOSCOPY 1995 VIRTUAL COLONOSCOPY 1995 RSV VACCINE (1 - 1-dose 75+ series) 2025 INFLUENZA VACCINE (#1) 2025 COVID-19 VACCINE ( - 2024-2 6 season) 2025 DEPRESSION SCREENING 06/10/2026 06/10/2025 HEPATITIS A VACCINES Aged Out No long [...] this topic Medical Devices Not on file Procedures Procedure Name Priority Date/Time Associated Diagnosis Comments CBC AND DIFFERENTIAL Routine 06/11/2025 9:24 AM EST Parkinson's disease without dyskinesia or fluctuating manifestations NEUROFILAMENT LIGHT CHAIN, PLASMA Routine 06/11/2025 9:24 AM EST Parkinson's disease without dyskinesia or fluctuating manifestations CBC AND DIFFERENTIAL Routine 06/11/2025 9:24 AM EST Parkinson's disease without dyskinesia or fluctuating manifestations COMPREHENSIVE METABOLIC PANEL (CMP) Routine 06/11/2025 9:24 AM EST Parkinson's disease without dyskinesia or fluctuating manifestations MAGNESIUM Routine 06/11/2025 9:24 AM EST Parkinson's disease without dyskinesia or fluctuating manifestations TSH WITH REFLEX Routine 06/11/2025 9:24 AM EST Parkinson's disease without dyskinesia or fluctuating manifestations VITAMIN B12 Routine 06/11/2025 9:24 AM EST Parkinson's disease without dyskinesia or fluctuating manifestations from Last 3 Months Results * (ABNORMAL) Comprehensive Metabolic Panel (CMP) (06/11/2025 9:24 AM EST) Sodium 142 136 - 145 mmol/L 06/11/2025 10:29 AM EST [facility] Potassium 4.1 3.4 - 5.1 mmol/L 06/11/2025 10:29 AM [facility] Chloride 103 98 - 107 mmol/L 06/11/2025 10:29 AM EST [facility] CO2 27 20 - 31 mmol/L 06/11/2025 10:29 AM [facility] Anion Gap 12 3 - 17 mmol/L 06/11/2025 10:29 AM [facility] BUN 14 6 - 23 mg/dL 06/11/2025 10:29 AM [facility] Creatinine 1.33(H) 0.60 - 1.30 mg/dL 06/11/2025 10:29 AM [facility] eGFR 56(L) >59 mL/min/1. 73m2 06/11/2025 10:29 AM [facility] Comment:Estimated glomerular filtration rate calculated using the CKD-EPI refit equation. Glucose 88 70 - 99 mg/dL 06/11/2025 10:29 AM [facility] Calcium 9.4 8.5 - 10.5 mg/dL 06/11/2025 10:29 AM [facility] AST 25 10 - 50 U/L 06/11/2025 10:29 AM EST [facility] ALT 18 10 - 50 U/L 06/11/2025 10:29 AM EST [facility] Alkaline Phosphatase 53 40 - 130 U/L 06/11/2025 10:29 AM EST [facility] Bilirubin, Total 0.9 0.0 - 1.2 mg/dL 06/11/2025 10:29 AM EST [facility] Comment:Total Bilirubin incr easing at a rate >5 mg/dl/day or Total Bilirubin exceeding 12.9 mg/dl (full term infants) or 15 mg/dl ( infants) may suggest pathologic jaundice in a . Total Protein 7.0 6.4 - 8.3 g/dL 06/11/2025 10:29 AM EST [facility] Albumin 4.2 3.5 - 5.2 g/dL 06/11/2025 10:29 AM EST [facility] Globulin 2.8 1.9 - 4.1 g/dL 06/11/2025 10:29 AM EST [facility] Blood (Blood) Venipuncture / Unknown 06/11/2025 9:24 AM EST 06/11/2025 9:25 AM EST Monica Brice PA-C LAB BLOOD BKR ORDERABLES F inal Result Performing Organization Address City/State/[facility] Co de Phone Number [facility] [address] [place] [phone] * (ABNORMAL) CBC and Differential (06/11/2025 9:24 AM EST) WBC 4.88 4.00 - 11.00 K/uL 06/11/2025 10:24 AM EST [facility] RBC 6.26(H) 4.50 - 5.90 M/uL 06/11/2025 10:24 AM EST [facility] Hemoglobin 13.3(L) 13.5 - 17.5 g/dL 06/11/2025 10:24 AM EST [facility] Hematocrit 43.3 41.0 - 53.0 % 06/11/2025 10:24 AM EST [facility] MCV 69.2(L) 80.0 - 100.0 fL 06/11/2025 10:24 AM EST [facility] MCH 21.2(L) 27.0 - 31.0 pg 06/11/2025 10:24 AM EST [facility] MCHC 30.7(L) 32.0 - 36.0 g/dL 06/11/2025 10:24 AM EST [facility] MPV 8.8 8.4 - 12.0 fL 06/11/2025 10:24 AM EST [facility] RDW-CV 17.0(H) 11.5 - 14.5 % 06/11/2025 10:24 AM EST [facility] PLT 245 150 - 450 K/uL 06/11/2025 10:24 AM EST [facility] Neutrophils 71.2 % 06/11/2025 10:24 AM EST [facility] Lymphocytes 16.0 % 06/11/2025 10:24 AM EST [facility] Monocytes 9.6 % 06/11/2025 10:24 AM EST [facility] Eosinophils 1.2 % 06/11/2025 10:24 AM EST [facility] Basophils 1.4 % 06/11/2025 10:24 AM EST [facility] Imm Grans 0.6 % 06/11/2025 10:24 AM EST [facility] NRBC 0.0 <=0.0 /100 WBCs 06/11/2025 10:24 AM EST [facility] Absolute Neutrophils 3.47 1.92 - 7.60 K/uL 06/11/2025 10:24 AM EST [facility] Absolute Lymphocytes 0.78 0.72 - 4.10 K/uL 06/11/2025 10:24 AM EST [facility] Absolute Monocytes 0.47 0.16 - 1.10 K/uL 06/11/2025 10:24 AM EST [facility] Absolute Eosinophils 0.06 0.00 - 0.50 K/uL 06/11/2025 10:24 AM EST [facility] Absolute Basophils 0.07 0.00 - 0.15 K/uL 06/11/2025 10:24 AM EST [facility] Absolute Imm Grans 0.03 0.00 - 0.09 K/uL 06/11/2025 10:24 AM EST [facility] Absolute NRBC 0.00 <=0.00 K cells/uL 06/11/2025 10:24 AM EST [facility] Absolute Neutrophils 3.47 1.92 - 7.60 K/uL 06/11/2025 10:24 AM EST [facility] Comment:Automated cell count . Manual ANC may differ if performed. Diff Type Auto 06/11/2025 10:24 AM EST [facility] [employer] Blood (Blood) Venipuncture / Unknown 06/11/2025 9:24 AM EST 06/11/2025 9:25 AM EST Monica Brice PA-C LAB BLOOD BKR ORDERABLES F inal Result Performing Organization Address [facility] [place] [address] * Thyroid Stimulating Hormone (TSH), with Reflex (06/11/2025 9:24 AM EST) Pathologist [facility] TSH 2.72 0.40 - 5.90 uIU/mL 06/11/2025 10:29 AM EST [facility] [employer] Blood (Blood) Venipuncture / Unknown 06/11/2025 9:24 AM EST 06/11/2025 9:25 AM EST Monica Brice PA-C LAB BLOOD BKR ORDERABLES F inal Result Performing Organization Address [facility] [place] [address] * Neurofilament Light Chain, Plasma (06/11/2025 9:24 AM EST) Neurofilament Light Chain 25.0 < or = 42.1 pg/mL 06/12/2025 3:17 PM EST [facility] Comment: As of 2024, [facility] has updated the Neurofilament Light Chain (NfL) methodology. If patient is undergoing serial monitoring of NfL levels, rebaselining by requesting that this sample also be run on the previous assay method for comparison purposes is recommended. Rebaseline of this sample at no charge will be available until 09/27/2025 and the rebaseline result will be added to this report. Contact [facility] at to request this service. For [place] patients, call [phone]. ADDITIONAL INFORMATION The testing method is a chemiluminescent enzyme immunoassay for the quantitative determination of NfL in plasma manufactured by [employer]. and performed on the ProBueno analyzer. Values obtained with different methods may be different and cannot be used interchangeably. This test was developed and its performance characteristics determined by [facility] in a manner consistent with CLIA requirements. It has not been cleared by the [place] Food and Drug Administration. Blood (Blood) Venipuncture / Unknown 06/11/2025 9:24 AM EST 06/11/2025 9:25 AM EST Monica Brice PA-C LAB BLOOD BKR ORDERABLES F inal Result ILA JONES) [facility] [place] [id number] [address] [phone] * Magnesium (06/11/2025 9:24 AM EST) Magnesium 2.1 1.7 - 2.6 mg/dL 06/11/2025 10:29 AM EST [facility] [employer] Blood (Blood) Venipuncture / Unknown 06/11/2025 9:24 AM EST 06/11/2025 9:25 AM EST Monica Brice PA-C LAB BLOOD BKR ORDERABLES F inal Result [facility] [address] [place] [address] * Vitamin B12 (06/11/2025 9:24 AM EST) Vitamin B12 319 232 - 1,245 pg/mL 06/11/2025 10:41 AM EST [facility] Blood (Blood) Venipuncture / Unknown 06/11/2025 9:24 AM EST 06/11/2025 9:25 AM EST us Monica Brice PA-C LAB BLOOD BKR ORDERABLES F inal Result [facility] [address] [place] [address] from Last 3 Months Insurance [place] [id number] [facility] MEDICARE SUPPLEMENT MEDICARE PART A & B Member Subscriber Plan / Payer (Ef fective 2015-Present) Name:Giuseppe Barrera Member ID:[id number] Relation to Subscriber:Self Name:Giuseppe Barrera Subscriber ID:[id number] Payer ID:[id number] Group ID:Not on file Type:Medicare Address: [employer] [address] MEDICARE SUPPLEMENT MEDICARE PART A & B MEDICARE SUPPLEMENT MEDICARE PART A & B [facility] MEDICARE SUPPLEMENT MEDICARE PART A & B [facility] MEDICARE SUPPLEMENT MEDICARE PART A & B [facility] MEDICARE SUPPLEMENT Care Teams Panel Edge Painter Relationship Specialty Start Date End Date Raiza Mancia NP [address] [place] [address] PCP - General Nurse Practitioner 11/23/22 Lucia Devine MD [address] [place] [id number] [email or web address] 08/03/23 Additional Source Comments The information contained in this document represents components of the legal health record. It is not the complete legal health record.[facility]
== END 2025-07-15 11:37 | disposition home or self-care (01) ==
LOC: HO.HSMS 10:45
PROVIDERS: PCP Internal Medicine; Visit Provider Psychiatry & Neurology Neurology
DX: G20.A1 Parkinson's disease without dyskinesia, without mention of fluctuations (principal); G25.2 Other specified forms of tremor; G47.9 Sleep disorder, unspecified
CPT/HCPCS: 99214; G2211

== ENCOUNTER → 2025-07-15 10:45 | Outpatient (BNVA) | payer MEDICARE, OTHER, SELFPAY | PROVIDERS: PCP Internal Medicine; Visit Provider Psychiatry & Neurology Neurology | DX: G20.A1 Parkinson's disease without dyskinesia, without mention of fluctuations (principal); G25.2 Other specified forms of tremor; G47.9 Sleep disorder, unspecified | CPT/HCPCS: 99212 ==